=== PATIENT | female | born 1970 ===

== ENCOUNTER 2017-05-03 10:26 | Day surgery (SDC) | payer OTHER ==
--- NOTE | 2017-05-02 08:43 | PDGENHP ---
History and Physical - Chief Complaint Right Hip Pain - History of Present Illness 1. Right~Hip Pain, acute on chronic 2. ~~S/P Labral recon 3 years ago 3. Left hip pain, less symptomatic HISTORY OF PRESENT ILLNESS: Jonathanis a 46 y.o.~~active female~who I have had the pleasure to consult on today. ~I have enjoyed meeting her. She~lives in [place]. 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 ~She~is ; she~has four~children. ~Jonathanenjoys [place] outdoor activities. Chelsi's right~hip pain started almost 10~years ago, with no~recalled trauma or injury, and with no~previous complaints.~Jonathandoes not have~a known history of hip dysplasia. She saw Dr. Matta 3 years ago and was diagnosed with GLENN, he did a Right hip scope with labral reconstruction. She had significant improvement after surgery and got back to running and snowboarding, although she was never pain free. About 1 year after her surgery her pain started returning and has gotten slowly progressively worse for the past 2 years. Presentation today is of~anterior and lateral right~hip pain. ~The hip does~ wake her~at night and does~click and catch on her. Sitting can be uncomfortable~ for her. Jonathandoes not~report suffering from lower back pain episodes. Jonathanhas~participated in physical therapy and has~tried other conservative measures including dry needling, chiropractic treatments and massage therapy. She has had 3 SI injections on the Right side, most recently 2 months ago, they provide significant relief for roughly 2 weeks. She has had 1 hip injection 4 months ago which provided complete relief for several hours, but no long lasting help. She~has not~received sufficient symptomatic improvement. Jonathanhas~utilized medication for pain management, including NSAID~and ultram. Chelsi Pagehas used medication for 3-4 years. Jonathandenies issues with the left~hip. ~ Jonathanunderstands that she~has a hip and pelvis problem which should be researched and wishes to get a better understanding of her~hip status, followed by an establishment of a treatment strategy, hoping she~would be able to get back to her~well being active life. History: Past medical history: ~ Hypothyroidism Relevant familial history: None which is relevant Past surgical history: No. Surgery Anesthesia Year Outcome 1 Appendectomy General 1992 Good 2 Left foot surgery General 2007 Good 3 Right hip scope General 2014 Not satisfactory Jonathandenies problematic issues with general anesthesia in the past. I have reviewed, verified and agree with the past medical, surgical, family and social history. Current Medications:~has a current medication list which includes the following prescription(s): levothyroxine. ALLERGIES:~has No Known Allergies. Objective: Physical Examination: Jonathanis 5~feet 3~inches tall and weighs~125~Lbs. Jonathanis AAO x3; she~is well- nourished, in NAD. Skin is warm and dry. ~Breathing is non-labored. ~CV with RRR by pulse. Abdomen is soft, NTND. Currently, she~walks with a normal~gait. Trendelenburg sign is positive and proprioception~is reduced, right~side. She~presents~with mild~signs of joint laxity.~Beightons Score: 2 Lower spine examination is negative~for sciatic or femoral nerve irritation with negative~SLR &~femoral stretch tests. Range of motion of the spine is normal~for flexion, extension, and rotations, with no~associated pain. Strength, Sensation and pulses are normal - bilaterally Ankles and knees exams are normal~and no~mal-alignment is evident. She~has~no leg length discrepancy. Thigh circumference is symmetric~with no evidence for muscle atrophy~on both~ sides. Hip ROM (degrees): FL ER At 90~hip FL IR At 90~hip FL AB AD EX IR Neutral hip ER Neutral hip R 110 45 15 45 10 5 45 30 L 115 50 15 45 5 5 50 25 Specific hip and pelvis tests: Quadrant STACI Roll Add. Longus R +++ +++ Negative Negative L ++ ++ Negative Negative Glut. Med ITB Pos. Imp R ++ 5/5 strength Negative 5/5 strength Negative L Negative 5/5 strength Negative 5/5 strength Negative Squeeze test measured normal Bony Symphysis pubis is pain free~to touch while concentric activity of the rectus abdominis, does not~produce pain at its insertion. Ilio Psos specific tests are positive for pain during cycling for the right hip~ and no snap HF has good strength with minimal pain on the right hip. No~capsule tenderness Greater trochanteric burse is pain free~on both hips. Piriformis tests: FAIR is negative, with no~local signs of neuritis related to sciatic nerve. SIJs examination is normal~with normal~STACI in relation and local tenderness. Hamstrings tests are negative~functional contraction and negative~tendinopathy both hips. On a daily basis, the following percentages reflect Chelsi's overall total pain: Deep hip: 75% Glut: 25% Imaging: Radiology studies which I~have personally reviewed, analyzed and measured are below: XR: AP of the hip and pelvis: Performed in a good~technique Coccyx to pubic symphysis distance 1.5~cm. 0~degrees caudal/cephal [place]~Lines are preserved. Minimal~Pathological signs are seen in the Symphysis Pubis. Minimal~Pathological signs are seen at the Ischial~tuberosity. ~ Specific measurements show: NSA~ LCE Sourcil~Angle Sharp's angle Lat. Cam Lat. Pincer C.Over~sign Head~Coverage % ATDmm R N 30 5 41 - - - 72 N L N 35 1 36 - - - N N Pos. wall sign ISS NAD ~~Dysplasia Comments R Negative Negative 12~mm Negative L Negative Negative 10~mm Negative Sclerosis Sup. Lat. OA Cysts Joint Space-WBZ Joint Space-Medial R + + + (femoral) 4.1~mm 4.6~mm L Negative Negative Negative 4.7~mm 4.0~mm X Table lateral: Anterior cam lesion is seen~on the left hip. Alpha Angle: ~ Right 38~dergrees Left 51~degrees Impression and plan:~ Jonathanis a 46 y.o.~active female~suffering from symptomatic right~hip pain likely due to either scar tissue and adhesions and possibly~borderline instability causing significant disability to her~and altering~her~sport and life activities. Physical examination, imaging, and her~story correspond with the diagnosis mentioned above. Post surgical scar tissue and adhesions is a one of the commonest reasons for revision hip scope and is usually addressed well via revision hip scope and scar tissue removal. I explained that hip Instability (Dysplasia) is a condition wherein the hip joint has excessive play~and instability due to a variety of factors, including the depth and adequacy of the socket, the orientation of the femur bone, and ligament laxity around the hip joint. Dysplasia ranges in severity from borderline to medhat, with treatment options being specific to the specific nature of the problem. Left untreated, the instability in the hip joint can cause progressive tearing of the labrum and deterioration of the surface cartilage, ultimately resulting in progressive osteoarthritis of the hip. I reviewed conservative treatment options for dysplasia including activity modification to avoid positions of instability, physical therapy, non-steroidal anti-inflammatory medications, and various injections (corticosteroid and PRP) aimed at reducing inflammation in the hip joint or/and preventing dynamic instability and impingement. Although these measures may help to buy time, they are not a definitive solution to the problem given the underlying abnormality in the shape of the hip joint. Patients who have failed conservative management and continue to experience symptoms are candidates for definitive surgical treatment, which may consist of hip arthroscopy alone or in combination with more invasive bony realignment procedures of the hip socket and/or femur called periacetabular osteotomy (MARCUS) or derotational femoral osteotomy (DFO). Hip arthroscopy typically includes treating the labrum with either repair or reconstruction of the torn labrum; as well as addressing the underlying abnormalities by restoring the normal shape of the hip joint. ~If the cartilage is damaged a Microfracture surgical procedure may also be necessary to help stimulate the growth of fibrocartilage. If a patient requires a labral reconstruction or a Microfracture, the initial rehabilitation from the surgery may take longer, but the snf results are typically favorable. I have explained that because of her age and gender, the results of hip arthroscopy are less reproducible/predictable than with younger patients or male patients of the same age. I reviewed the technical aspects of periacetabular osteotomy (MARCUS) including risks, benefits, and expected course of recovery. Chelsi~understands that MARCUS is an inpatient procedure carried out through two medium sized incisions on the front and back of the hip joint. The hip socket is cut, realigned, and stabilized with 2 ~3 internal screws. Risks include infection, bleeding, injury to nearby nerves or vessels, stiffness, persistent pain, instability, failure of bony healing, implant related complications, and venous thromboembolic disease. Rarely, revision surgery may be required to address these problems. Risks, potential complications, side effects and recovery from surgical procedure were discussed in length. We explained how this surgery is an open procedure, and though patients tend to do well in the long-term, it involves significant pain in the first 2-4 weeks post-op and a rather lengthy rehab.~Overall recovery takes approximately 6 ~12~months depending on the extent of damage and degree of repair. Jonathanunderstands that she~will undergo hip arthroscopy 1 week prior to the MARCUS to address damage inside the hip joint. Jonathanunderstands that hip arthroscopy and MARCUS are two separate procedures that are best performed one week apart, with the arthroscopy commencing first to "tighten up" any pathology evident in the hip joint (labral repair, etc.) and the MARCUS open procedure occurring 7-10 days later to realign the acetabulum. Chelsi~will review the info presented. In order to obtain more detailed information regarding the alignment, orientation, and shape of the bony hip and pelvis I will order a CT scan to be performed. The results of the CT scan, including femoral torsion and acetabular version measured values and 3D images, will aid me in deciding on the best treatment strategy and surgical pre-planning. In order to better evaluate the soft tissues and cartilage of the hip joint, I will order an MRI scan. Jonathanis going to contact us after completing her~imaging studies. At this point we do NOT conclude that she suffers from hip instability. We need both MR and CT to be able to establish a formal diagnosis and suggest a treatment strategy. Jonathanis happy with this plan. I have also supplied her~with handouts, outlining the expected surgical treatment and rehab involved. I wish~Jonathanall the best, ~~ Art Messina MD History Information - Allergies/Home Medication List Allergies/Adverse Reactions: No Known Allergies Allergy (Verified 03/29/17 12:43) Home Medications: Fluoxetine HCl [Prozac 40 mg] 40 mg PO DAILY 03/29/17 [Last Taken Unknown] Levothyroxine [Synthroid 88 mcg (*)] 88 mcg PO DAILY06 03/29/17 [Last Taken Unknown] I have personally reviewed and updated: medical history - Social History Smoking Status: Never smoked Review of Systems Review of Systems: Physical Exam Physical Exam:
[2017-05-03] MEDS ORDERED: PREGABALIN 150 MG CAP PO ONE (10:40)
[2017-05-03] MEDS ORDERED: LR 1,000 ML IV ONE (10:40)
[2017-05-03] MEDS ORDERED: ceFAZolin 2 GM/SWFI 2 GM/20 ML SYR IVP ONE (10:40)
[2017-05-03] MEDS ORDERED: ACETAMINOPHEN 500 MG TAB PO ONE (10:40)
[2017-05-03] MEDS ORDERED: BUPIVACAINE 0.25% 30 ML SDV ONE (11:33)
[2017-05-03] MEDS ORDERED: EPINEPHrine 30 MG/30 ML MDV ONE (11:33)
[2017-05-03] MEDS ORDERED: MIDAZOLAM 2 MG/2 ML VIAL IVP ONE (13:36)
--- NOTE | 2017-05-03 13:38 | PDANEPAE ---
ANE History of Present Illness right hip pain ANE Past Medical History - Cardiovascular History Hx Hypertension: No Hx Arrhythmias: No Hx Chest Pain: No Hx Coronary Artery / Peripheral Vascular Disease: No Hx CHF / Valvular Disease: No Hx Palpitations: No - Pulmonary History Hx COPD: No Hx Asthma/Reactive Airway Disease: No Hx Recent Upper Respiratory Infection: No Hx Oxygen in Use at Home: No Hx Sleep Apnea: No Sleep Apnea Screening Result - Last Documented: Negative Pulmonary History Comment: exercise induced asthma - Neurologic History Hx Cerebrovascular Accident: No Hx Seizures: No Hx Dementia: No - Endocrine History Hx Diabetes: No Obesity: no - Renal History Hx Renal Disorders: No - Liver History Hx Hepatic Disorders: No - Neurological & Psychiatric Hx Hx Neurological and Psychiatric Disorders: Yes Neurological / Psychiatric History Comment: depression - Cancer History Hx Cancer: No - Congenital Disorder History Hx Congenital Disorders: No - GI History Hx Gastrointestinal Disorders: No - Other Health History Other Health History: none - Chronic Pain History Chronic Pain: No - Surgical History Prior Surgeries: labral reconstruction right hip. ANE Review of Systems Review of Systems: - Exercise capacity METS (RN): 4 METS ANE Patient History - Allergies Allergies/Adverse Reactions: No Known Allergies Allergy (Verified 03/29/17 12:43) - Home Medications Home medications: home medication list seen and reviewed Home Medications: Fluoxetine HCl [Prozac 40 mg] 40 mg PO DAILY 03/29/17 [Last Taken 05/03/17] Levothyroxine [Synthroid 88 mcg (*)] 88 mcg PO DAILY06 03/29/17 [Last Taken 04/09] - NPO status NPO Since - Liquids (Date): 05/03/17 NPO Since - Liquids (Time): 08:00 NPO Since - Solids (Date): 05/02/17 NPO Since - Solids (Time): 19:00 - Anes Hx Anes Hx: no prior problems - Smoking Hx Smoking Status: Never smoked - Alcohol Use Alcohol Use: None - Family Anes Hx Family Hx Anesthesia Complications: none ANE Labs/Vital Signs - Vital Signs Blood Pressure: 138/86 Heart Rate: 63 Respiratory Rate: 18 O2 Sat (%): 97 Height: 160.02 cm Weight: 56.699 kg ANE Physical Exam - Airway Neck exam: FROM Mallampati Score: Class 1 Mouth exam: normal dental/mouth exam - Pulmonary Pulmonary: no respiratory distress - Cardiovascular Cardiovascular: regular rate and rhythym - ASA Status ASA Status: II ANE Anesthesia Plan Anesthesia Plan: general endotracheal anesthesia
[2017-05-03] MEDS ORDERED: PROPOFOL 200 MG/20 ML VIAL ONE (13:44)
[2017-05-03] MEDS ORDERED: fentaNYL 100 MCG/2 ML INJ ONE ×3 (13:44→16:30)
[2017-05-03] MEDS ORDERED: ROCURONIUM 100 MG/10 ML VIAL ONE (13:45)
[2017-05-03] MEDS ORDERED: LIDOCAINE 2% 5 ML SDV ONE (13:46)
[2017-05-03] MEDS ORDERED: DEXAMETHASONE 4 MG/ML VIAL ONE (13:51)
[2017-05-03] MEDS ORDERED: SUGAMMADEX SODIUM 200 MG/2 ML VIAL IVP ONE (13:51)
[2017-05-03] MEDS ORDERED: ONDANSETRON 4 MG/2 ML VIAL ONE (13:51)
[2017-05-03] MEDS ORDERED: PROMETHAZINE HCL 25 MG/ML INJ IVP PRN (16:27)
[2017-05-03] MEDS ORDERED: NALOXONE HCL 0.4 MG/ML INJ IVP PRN (16:27)
[2017-05-03] MEDS ORDERED: OXYCODONE/APAP 5/325 TAB PO PRN (16:27)
[2017-05-03] MEDS ORDERED: LR 500 ML IV PRN (16:27)
[2017-05-03] MEDS ORDERED: ALBUTEROL 3 ML DEYVIAL IH PRN (16:27)
[2017-05-03] MEDS ORDERED: ONDANSETRON 4 MG/2 ML VIAL IVP PRN (16:27)
[2017-05-03] MEDS ORDERED: ACETAMINOPHEN 500 MG TAB PO PRN (16:27)
--- NOTE | 2017-05-03 16:27 | POSTANESTH ---
Post Anesthetic Evaluation Cardiovascular Status: Normal, Stable Respiratory Status: Normal, Stable Level of Consciousness/Mental Status: Can Participate in Eval Pain Control: Adequate, Prn Tx Ordered Nausea/Vomiting Control: Adequate, Prn Tx Ordered Complications Possibly Related to Anesthesia: None Noted
[2017-05-03] MEDS ORDERED: HYDROmorphONE/DILAUDID 1 MG/ML INJ ONE ×2 (16:30→17:07)
[2017-05-03] MEDS: HYDROmorphONE/DILAUDID 1 MG/ML INJ IVP PRN ×3 (16:32→17:08)
[2017-05-03] MEDS: fentaNYL 100 MCG/2 ML INJ IVP PRN ×3 (16:37→16:54)
[2017-05-03] MEDS ORDERED: OXYCODONE/APAP 5/325 TAB ONE (16:45)
[2017-05-03 17:17] VITALS: RESP 14; TEMP 97.5; O2SAT 94
[2017-05-03 17:32] VITALS: BP 122/81; PULSE 86
== END 2017-05-03 18:20 | disposition home or self-care (01) ==
LOC: FSGY 10:26
PROVIDERS: ATTEND Orthopaedic Surgery Sports Medicine
DX: S73.191A Other sprain of right hip, initial encounter (principal); Q65.89 Other specified congenital deformities of hip
CPT/HCPCS: C1713; J0171; J0690; J1100; J1170; J2250; J2405; J2704; J3010

== ENCOUNTER 2017-05-06 05:44 | Inpatient (IN) | payer OTHER ==
[2017-05-06] MEDS ORDERED: LIDOCAINE 1% 2 ML INJ ID PRN (06:06)
[2017-05-06] MEDS ORDERED: LR 1,000 ML IV ONE (06:06)
[2017-05-06] MEDS ORDERED: ACETAMINOPHEN 500 MG TAB PO ONE (06:52)
[2017-05-06] MEDS ORDERED: SCOPOLAMINE HYDROBROMIDE 1 MG/3 DAYS PATCH TD ONE (06:52)
[2017-05-06] MEDS ORDERED: TRANEXAMIC ACID 1,000 MG in NS 100 ML IV ONE (06:52)
[2017-05-06] MEDS ORDERED: ceFAZolin 2 GM/SWFI 2 GM/20 ML SYR IVP ONE (06:52)
[2017-05-06] MEDS ORDERED: PREGABALIN 150 MG CAP PO ONE ×2 (06:52→07:00)
--- NOTE | 2017-05-06 06:53 | PDHPUP ---
History & Physical Update H&P update statement: This history and physical update is based on an assessment of the patient which was completed after admission or registration (within 24 hours), but prior to the surgery/procedure. H&P update: H&P reviewed & patient examined, no change in patient's condition since H&P completed
[2017-05-06] MEDS ORDERED: CITRATE DEXTROSE SOLN 500 ML BAG ONE (07:10)
--- NOTE | 2017-05-06 07:12 | PDANEPAE ---
ANE Past Medical History - Cardiovascular History Hx Hypertension: No Hx Arrhythmias: No Hx Chest Pain: No Hx Coronary Artery / Peripheral Vascular Disease: No Hx CHF / Valvular Disease: No Hx Palpitations: No - Pulmonary History Hx COPD: No Hx Asthma/Reactive Airway Disease: Yes Hx Recent Upper Respiratory Infection: No Hx Oxygen in Use at Home: No Hx Sleep Apnea: No Sleep Apnea Screening Result - Last Documented: Negative Pulmonary History Comment: exercise induced asthma - Neurologic History Hx Cerebrovascular Accident: No Hx Seizures: No Hx Dementia: No - Endocrine History Hx Diabetes: No Hypothyroid: Yes - Renal History Hx Renal Disorders: No - Liver History Hx Hepatic Disorders: No - Neurological & Psychiatric Hx Hx Neurological and Psychiatric Disorders: Yes Neurological / Psychiatric History Comment: depression - Cancer History Hx Cancer: No - Congenital Disorder History Hx Congenital Disorders: No - GI History Hx Gastrointestinal Disorders: No - Other Health History Other Health History: none - Chronic Pain History Chronic Pain: No - Surgical History Prior Surgeries: labral reconstruction right hip. ANE Review of Systems Review of Systems: - Exercise capacity METS (RN): 5 METS ANE Patient History - Allergies Allergies/Adverse Reactions: No Known Allergies Allergy (Verified 03/29/17 12:43) - Home Medications Home Medications: Fluoxetine HCl [Prozac 40 mg] 40 mg PO DAILY 03/29/17 [Last Taken 05/06/17] Levothyroxine [Synthroid 88 mcg (*)] 88 mcg PO DAILY06 03/29/17 [Last Taken ] - NPO status NPO Since - Liquids (Date): 05/05/17 NPO Since - Liquids (Time): 20:00 NPO Since - Solids (Date): 05/05/17 NPO Since - Solids (Time): 18:30 - Smoking Hx Smoking Status: Never smoked - Family Anes Hx Family Hx Anesthesia Complications: none ANE Labs/Vital Signs - Vital Signs Blood Pressure: 135/85 Heart Rate: 63 Respiratory Rate: 16 O2 Sat (%): 96 Height: 160.02 cm Weight: 56.699 kg ANE Physical Exam - Airway Mallampati Score: Class 2 - ASA Status ASA Status: II ANE Anesthesia Plan Anesthesia Plan: GA w LMA, epidural
[2017-05-06 07:14] LABS: HEMATOCRIT 39.3 % (38.0-47.0); HEMOGLOBIN 13.7 g/dL (12.6-16.3); MEAN CELL HEMOGLOBIN 31.4 pg (27.9-34.1); MEAN CELL HEMOGLOBIN CONCENTR. 34.9 g/dL (32.4-36.7); MEAN CELL VOLUME 90.1 fL (81.5-99.8); RED BLOOD CELL COUNT 4.36 10^6/uL (4.18-5.33); RED CELL DISTRIBUTION WIDTH 12.8 % (11.5-15.2)
[2017-05-06] MEDS ORDERED: MIDAZOLAM 2 MG/2 ML VIAL ONE (07:15)
[2017-05-06] MEDS ORDERED: fentaNYL 100 MCG/2 ML INJ ONE ×2 (07:18→09:32)
[2017-05-06] MEDS ORDERED: PROPOFOL 200 MG/20 ML VIAL ONE (07:18)
[2017-05-06] MEDS ORDERED: ONDANSETRON 4 MG/2 ML VIAL ONE (07:19)
[2017-05-06] MEDS ORDERED: METOCLOPRAMIDE 10 MG/2 ML VIAL ONE (07:19)
[2017-05-06] MEDS ORDERED: ceFAZolin 1 GM VIAL ONE ×2 (10:21)
[2017-05-06] MEDS ORDERED: PROMETHAZINE HCL 25 MG/ML INJ IVP PRN (12:28)
[2017-05-06] MEDS ORDERED: LR 500 ML IV PRN (12:28)
[2017-05-06] MEDS ORDERED: ONDANSETRON 4 MG/2 ML VIAL IVP PRN ×2 (12:28→12:45)
[2017-05-06] MEDS ORDERED: NALOXONE HCL 0.4 MG/ML INJ IVP PRN ×2 (12:28→12:52)
[2017-05-06] MEDS ORDERED: ONDANSETRON DISINTEGRATING 4 MG TAB PO PRN (12:45)
[2017-05-06] MEDS ORDERED: POLYETHYLENE GLYCOL 3350 17 GM PKT PO PRN (12:45)
[2017-05-06] MEDS ORDERED: LACTULOSE 20 GM/30 ML UDCUP PO PRN (12:45)
[2017-05-06] MEDS ORDERED: BISACODYL 10 MG SUPP PR PRN (12:45)
[2017-05-06] MEDS ORDERED: NARCOTIC DRIP BAG-TOTAL ALL TYPES EP PRN (12:52)
[2017-05-06] MEDS: fentaNYL 2MCG/ML/BUP 0.1% RTU 100 ML EP SCH ×2 (13:03→20:34)
[2017-05-06] MEDS: SENNOSIDES/DOCUSATE SODIUM TAB PO SCH (20:34)
--- NOTE | 2017-05-06 23:37 | SUROPNOTE ---
[facility] Operative Report - Surgery Surgery was performed at [facility] 05/06/17 Diagnosis: Right 1. Hip Acetabular Dysplasia ~ Operation: Right~Francisca Acetabular Osteotomy (MARCUS) Surgeon: Ryan Lambert MD [employer] Selling Floor Leader:~~Panfilo ROWLAND Anesthetic: General + epidural Procedure: General anesthetic. Antibiotics given. Cell saver in use. Fluoroscopy. Phase 1: Position lateral, diagonal skin incision between ischial tuberosity and greater trochanter as for posterior hip approach. Blunt split of glut max fibers. Identification of fat pad overlying sciatic nerve. Exposure of sciatic nerve under fat pad, gently retracting it away-medially to ischial tuberosity. Exposure of subcotoloid fossa proximal to short rotators. Using osteotomes and under fluoroscopy, osteotomy of subcotoloid fossa to sciatic notch proximal to ischial spine. Closure of lateral cut. Patient is turned supine. Phase 2: Skin incision just distal to ASIS. Using diathermy the iliac spine was exposed and inguinal ligament + Sartorious were retracted medially, taking the LFCN with them, protecting it. Inner ilium was dissected from iliacus muscle bluntly , with a cob and swab. Dissection continued towards lateral superior ramus pubis. Using fluoroscopy an osteotomy of lateral superior ramus, just medial to tear drop, was performed with curved fish mouth osteotome. Phase 3: Osteotomy lines of the ilium were marked with diathermy as pre planned according to XR/CT and expected correction of acatabulum. 2 Shanz screws were drilled into central acetabular fragment, corresponding with planned correction angles, in order to mobilize central acetabular fragment after osteotomy is complete. ~Iliac osteotomy was performed with reciprocating saw and the main acetabular fragment was moved to realign weight bearing position. After confirmation of correction using fluoroscopy in AP and false profile planes, the fragment was fixed with 2 - 5.5mm ~full threaded~screws~and 1 - 4.5~~full threaded~screw. Inguinal ligament and Sartorious were attached back to ASIS through drill holes. Incision was closed according to soft tissue layers. Skin was closed with subdermal Monocryl. Final fluoro shots were obtained to confirm position/correction. After surgery Chelsi~moved both lower limbs and had no NV motor compromise. Evaluation under anesthesia: IR at 90 degrees hip flexion prior to MARCUS was 10-15~degrees and after MARCUS was 10 ~degrees. Bleedin~cc into cell-saver, of blood products were returned to patient. Post op instructions: 1. Non~weight bearing crutches for 6 weeks 2. Epidural analgesia for 24-48 hours 3. Continuous SCD 4. Aspirin 81 mg X1 day once Epidural is discontinued 5. Avoid hip flexion past 90 and hip External rotation. 6. PT according to my recommendations at follow up visit Kind regards, Dr. Ryan Lambert
[2017-05-07] MEDS: fentaNYL 2MCG/ML/BUP 0.1% RTU 100 ML EP SCH ×3 (04:45→21:22)
[2017-05-07] MEDS: ACETAMINOPHEN 325 MG TAB PO PRN ×2 (04:45→18:32)
[2017-05-07] MEDS: LEVOTHYROXINE 88 MCG TAB PO SCH (04:46)
[2017-05-07 05:38] LABS: HEMATOCRIT 27.4 % (38.0-47.0); HEMOGLOBIN 9.1 g/dL (12.6-16.3); MEAN CELL HEMOGLOBIN 30.6 pg (27.9-34.1); MEAN CELL HEMOGLOBIN CONCENTR. 33.2 g/dL (32.4-36.7); MEAN CELL VOLUME 92.3 fL (81.5-99.8); RED BLOOD CELL COUNT 2.97 10^6/uL (4.18-5.33); RED CELL DISTRIBUTION WIDTH 12.8 % (11.5-15.2)
[2017-05-07 05:45] LABS: ANION GAP 8 mEq/L (8-16); CALCIUM 7.5 mg/dL (8.5-10.4); CARBON DIOXIDE 27 mEq/l (22-31); CHLORIDE 102 mEq/L (97-110); CREATININE 0.7 mg/dL (0.6-1.0); GLOMERULAR FILTRATION RATE > 60; GLUCOSE 92 mg/dL (70-100); POTASSIUM 3.8 mEq/L (3.5-5.2); SODIUM 137 mEq/L (134-144)
[2017-05-07] MEDS: SENNOSIDES/DOCUSATE SODIUM TAB PO SCH ×2 (08:45→21:21)
[2017-05-07] MEDS ORDERED: FLUoxetine 20 MG CAP PO SCH (09:00)
[2017-05-07] MEDS ORDERED: NON-FORMULARY NEW DRUG (Fluoxetine Hcl [Prozac 40 Mg] 40 MG) PO SCH (09:00)
[2017-05-07] MEDS: FLUoxetine 20 MG CAP PO SCH (10:57)
[2017-05-07] MEDS: REGARDING ANTICOAG MISC SCH (10:58)
[2017-05-07] MEDS: DC NARCS MISC SCH (10:58)
--- NOTE | 2017-05-07 15:15 | ASMTCMCOM ---
CM Note CM Note Notes: PT/OT clear pt for home. Anticipate pt will d/c when medically stable. CM available for changes/needs. Date Signed: 05/07/2017 03:14 PM Electronically Signed By:MARK Landin
--- NOTE | 2017-05-07 21:28 | SOAPPROG ---
SOAP Progress Note Assessment/Plan: Assessment: 1 day post op Right Periacetabular Osteotomy Plan: Incentive Spriometry; fevers likely atelectasis Wean down and off epidural tomorrow. transition to oral analgesics Up with PT/OT Pelvis xray on 05/07/17 21:25 Subjective: Chelsi was doing well when I saw her at 1900. Her pain has been well managed with epidural. She's been up, out of bed with nurses. She has been febrile, up to 101.7F. She denies any cp sob or nausea. Objective: Vital Signs Temp Pulse Resp BP Pulse Ox 38.0 C 112 H 16 101/60 99 05/07/17 18:00 05/07/17 18:00 05/07/17 18:00 05/07/17 18:00 05/07/17 18:00 Laboratory Results 05/07/17 04:48 05/07/17 04:48 05/06/17 05/07/17 05/08/17 05:59 05:59 05:59 Intake Total 1600 Output Total 1625 2600 Balance -25 -2600 well appearing in NAD Right hip: dressings clean dry intact scattered ecchymosis and edema surrounding incisions. NVI distally Full ROM of foot and ankle - Pending Discharge Pending Discharge Within 48 Hours: Yes Pending Discharge Date: 05/09/17 Pending Discharge Time: 11:00 ICD10 Worksheet Patient Problems: Problems Problem Status Onset Post-operative pain Acute - ICD10 Problem Qualifiers (1) Post-operative pain
[2017-05-07] MEDS: DIAZEPAM 2 MG TAB PO PRN (22:12)
[2017-05-08] MEDS: fentaNYL 2MCG/ML/BUP 0.1% RTU 100 ML EP SCH (06:04)
[2017-05-08] MEDS: ACETAMINOPHEN 325 MG TAB PO PRN ×2 (06:05→21:08)
[2017-05-08] MEDS: LEVOTHYROXINE 88 MCG TAB PO SCH (06:05)
--- NOTE | 2017-05-08 08:11 | SOAPPROG ---
SOAP Progress Note Assessment/Plan: Assessment: POD#2 s/p R PeriAcetabular Osteotomy and doing well overall Plan: - epidural to be d/c'ed today with transition to oral pain meds - regular diet with bowel regimen - encourage IS - PT/OT - green out once epidural d/c'ed - XR tomorrow - anticipate discharge to home on Saturday05/08/17 08:07 Subjective: Pain well controlled. Slept well last night. No nausea or vomiting. No CP or SOB. No fevers or chills. No numbness or tingling. Using IS. Got OOB with PT yesterday. Objective: Vital Signs Temp Pulse Resp BP Pulse Ox 37.7 C 84 14 92/53 L 94 05/08/17 07:46 05/08/17 07:46 05/08/17 07:46 05/08/17 07:46 05/08/17 07:46 Laboratory Results 05/07/17 04:48 05/07/17 04:48 05/07/17 05/08/17 05/09/17 05:59 05:59 05:59 Intake Total 1600 625 Output Total 1625 4150 Balance -25 -4150 625 GEN - NAD, AO ABD - soft, NT, ND BLE - incisions dressed - clean and dry - 5/5 adduction thighs, dorsi/plantar flexion of ankles and toes - SILT L5 - S1, except diminished in R LFCN - BCR, WWP, palpable dp and pt pulses ICD10 Worksheet Patient Problems: Problems Problem Status Onset Post-operative pain Acute
[2017-05-08] MEDS: SENNOSIDES/DOCUSATE SODIUM TAB PO SCH ×2 (09:43→19:37)
[2017-05-08] MEDS: FLUoxetine 20 MG CAP PO SCH (09:43)
[2017-05-08] MEDS: REGARDING ANTICOAG MISC SCH (09:46)
[2017-05-08] MEDS: DC NARCS MISC SCH (09:46)
--- NOTE | 2017-05-08 12:42 | SOAPPROG ---
SOAP Progress Note Assessment/Plan: Assessment: POD2 s/p MARCUS. Pain has been well controlled with epidural with minimal side effects (mild itching). She has been ambulatory without difficulty. Plan:Wean epidural and convert to po pain meds then discontinue epidural. 05/08/17 12:40 Objective: Vital Signs Temp Pulse Resp BP Pulse Ox 37.6 C 81 16 107/64 94 05/08/17 12:08 05/08/17 12:08 05/08/17 12:08 05/08/17 12:08 05/08/17 12:08 Laboratory Results 05/07/17 04:48 05/07/17 04:48 05/07/17 05/08/17 05/09/17 05:59 05:59 05:59 Intake Total 1600 625 Output Total 2813 4154 800 Balance -25 -4150 -175 ICD10 Worksheet Patient Problems: Problems Problem Status Onset Post-operative pain Acute
[2017-05-08] MEDS ORDERED: HYDROmorphone HCL/NS/PF 0.4 MG/2 ML SYR IVP PRN (13:47)
[2017-05-08] MEDS: oxyCODONE IR 5 MG TAB PO PRN ×4 (13:52→22:48)
[2017-05-08] MEDS: ASPIRIN EC 81 MG TAB PO SCH (13:52)
[2017-05-08] MEDS: diphenhydrAMINE 25 MG CAP PO PRN (17:50)
[2017-05-08] MEDS: DIAZEPAM 2 MG TAB PO PRN (19:33)
[2017-05-09] MEDS: DIAZEPAM 2 MG TAB PO PRN ×2 (02:04→21:15)
[2017-05-09] MEDS: oxyCODONE IR 5 MG TAB PO PRN ×5 (02:04→21:16)
[2017-05-09] MEDS: LEVOTHYROXINE 88 MCG TAB PO SCH (06:09)
[2017-05-09] MEDS: SENNOSIDES/DOCUSATE SODIUM TAB PO SCH ×2 (09:39→20:58)
[2017-05-09] MEDS: FLUoxetine 20 MG CAP PO SCH (09:40)
[2017-05-09] MEDS: ASPIRIN EC 81 MG TAB PO SCH (09:40)
[2017-05-09] MEDS: MAGNESIUM HYDROXIDE 30 ML UDCUP PO PRN ×2 (09:47→21:06)
[2017-05-09] MEDS: DC NARCS MISC SCH (09:48)
[2017-05-09] MEDS: REGARDING ANTICOAG MISC SCH (09:49)
[2017-05-09] MEDS: diphenhydrAMINE 25 MG CAP PO PRN ×2 (10:41→17:13)
[2017-05-09] MEDS: ACETAMINOPHEN 325 MG TAB PO PRN (10:41)
[2017-05-09] MEDS ORDERED: NS 1,000 ML IV SCH (23:00)
[2017-05-09] MEDS: HYDROmorphone HCL/NS/PF 0.4 MG/2 ML SYR IVP PRN (23:10)
[2017-05-10] MEDS: LEVOTHYROXINE 88 MCG TAB PO SCH (05:25)
--- NOTE | 2017-05-10 06:11 | PDANEPAE ---
ANE History of Present Illness 46 yo female s/p R MARCUS on 05/06 now with hardware misplacement for revision. ANE Past Medical History - Cardiovascular History Hx Hypertension: No Hx Arrhythmias: No Hx Chest Pain: No Hx Coronary Artery / Peripheral Vascular Disease: No Hx CHF / Valvular Disease: No Hx Palpitations: No - Pulmonary History Hx COPD: No Hx Asthma/Reactive Airway Disease: Yes Hx Recent Upper Respiratory Infection: No Hx Oxygen in Use at Home: No Hx Sleep Apnea: No Sleep Apnea Screening Result - Last Documented: Negative Pulmonary History Comment: exercise induced asthma - Neurologic History Hx Cerebrovascular Accident: No Hx Seizures: No Hx Dementia: No - Endocrine History Hx Diabetes: No Hypothyroid: Yes - Renal History Hx Renal Disorders: No - Liver History Hx Hepatic Disorders: No - Neurological & Psychiatric Hx Hx Neurological and Psychiatric Disorders: Yes Neurological / Psychiatric History Comment: depression - Cancer History Hx Cancer: No - Congenital Disorder History Hx Congenital Disorders: No - GI History Hx Gastrointestinal Disorders: No - Other Health History Other Health History: none - Chronic Pain History Chronic Pain: No - Surgical History Prior Surgeries: labral reconstruction right hip, L MARCUS on 05/06/17. ANE Review of Systems Review of systems is: negative Review of Systems: - Exercise capacity METS (RN): 5 METS - Systems Constitutional: Reports: fever (after surgery) Cardiac: Reports: no symptoms Respiratory: Reports: no symptoms ANE Patient History - Allergies Allergies/Adverse Reactions: No Known Allergies Allergy (Verified 03/29/17 12:43) - Home Medications Home Medications: Fluoxetine HCl [Prozac 40 mg] 60 mg PO DAILY 03/29/17 [Last Taken 05/06/17] Levothyroxine [Synthroid 88 mcg (*)] 88 mcg PO DAILY06 03/29/17 [Last Taken ] - NPO status NPO Since - Liquids (Date): 05/09/17 NPO Since - Liquids (Time): 23:00 NPO Since - Solids (Date): 05/09/17 NPO Since - Solids (Time): 23:00 - Anes Hx Anes Hx: no prior problems - Smoking Hx Smoking Status: Never smoked Marijuana use: No - Alcohol Use Alcohol Use: Occasionally - Family Anes Hx Family Anes Hx: neg - N/A Family Hx Anesthesia Complications: none ANE Labs/Vital Signs - Labs Result Diagrams: 05/07/17 04:48 05/07/17 04:48 - Labs - CBC HGB: post-op anemia, rechecking CBC today - Vital Signs Blood Pressure: 124/74 Heart Rate: 64 Respiratory Rate: 16 O2 Sat (%): 94 Height: 160.02 cm Weight: 56.69 kg ANE Physical Exam - Airway Neck exam: FROM Mallampati Score: Class 2 Mouth exam: normal dental/mouth exam (braces - pt requests something be placed between braces and inner lip to protect her mouth.) - Pulmonary Pulmonary: clear to auscultation - Cardiovascular Cardiovascular: regular rate and rhythym - ASA Status ASA Status: II ANE Anesthesia Plan Anesthesia Plan: general endotracheal anesthesia
[2017-05-10] MEDS ORDERED: PREGABALIN 150 MG CAP PO ONE (06:33)
[2017-05-10] MEDS ORDERED: ACETAMINOPHEN 500 MG TAB PO ONE (06:33)
[2017-05-10] MEDS ORDERED: SCOPOLAMINE HYDROBROMIDE 1 MG/3 DAYS PATCH TD ONE (06:33)
[2017-05-10] MEDS ORDERED: ceFAZolin 2 GM/SWFI 2 GM/20 ML SYR IVP ONE (06:33)
--- NOTE | 2017-05-10 06:35 | PDHPUP ---
History & Physical Update H&P update statement: This history and physical update is based on an assessment of the patient which was completed after admission or registration (within 24 hours), but prior to the surgery/procedure.
[2017-05-10] MEDS ORDERED: CITRATE DEXTROSE SOLN 500 ML BAG ONE (06:42)
[2017-05-10] MEDS ORDERED: PREGABALIN 50 MG CAP ONE (06:47)
[2017-05-10] MEDS ORDERED: MIDAZOLAM 2 MG/2 ML VIAL IVP ONE (07:03)
[2017-05-10 07:08] LABS: HEMATOCRIT 22.4 % (38.0-47.0); HEMOGLOBIN 7.8 g/dL (12.6-16.3); MEAN CELL HEMOGLOBIN 31.7 pg (27.9-34.1); MEAN CELL HEMOGLOBIN CONCENTR. 34.8 g/dL (32.4-36.7); MEAN CELL VOLUME 91.1 fL (81.5-99.8); RED BLOOD CELL COUNT 2.46 10^6/uL (4.18-5.33); RED CELL DISTRIBUTION WIDTH 12.6 % (11.5-15.2)
[2017-05-10] MEDS ORDERED: HYDROmorphONE/DILAUDID 2 MG/ML INJ ONE (07:09)
[2017-05-10] MEDS ORDERED: PROPOFOL/EMULSION 500 MG/50 ML BOTTLE IV ONE ×2 (07:09→09:04)
[2017-05-10] MEDS ORDERED: ROCURONIUM 100 MG/10 ML VIAL ONE (07:10)
[2017-05-10] MEDS ORDERED: DEXAMETHASONE 4 MG/ML VIAL ONE ×2 (07:10)
[2017-05-10] MEDS ORDERED: LIDOCAINE 2% 5 ML SDV ONE (07:10)
[2017-05-10] MEDS ORDERED: MIDAZOLAM 2 MG/2 ML VIAL ONE (07:12)
[2017-05-10] MEDS ORDERED: BUPIVACAINE 0.25% 30 ML SDV ONE (07:27)
[2017-05-10] MEDS ORDERED: DEXMEDETOMIDINE IN 0.9 % NACL 100 ML IV SCH (07:30)
[2017-05-10] MEDS ORDERED: DEXMEDETOMIDINE HCL 400 MCG in NS 100 ML IV SCH (07:30)
[2017-05-10] MEDS ORDERED: PHENYLEPHRINE HCL 100 MCG/ML SYR ONE ×2 (07:54→10:24)
[2017-05-10] MEDS ORDERED: ONDANSETRON 4 MG/2 ML VIAL ONE (10:01)
[2017-05-10] MEDS ORDERED: ALBUTEROL 3 ML DEYVIAL IH PRN (10:12)
[2017-05-10] MEDS ORDERED: NALOXONE HCL 0.4 MG/ML INJ IVP PRN (10:12)
[2017-05-10] MEDS ORDERED: PROMETHAZINE HCL 25 MG/ML INJ IVP PRN (10:12)
[2017-05-10] MEDS ORDERED: HYDROmorphONE/DILAUDID 1 MG/ML INJ IVP PRN ×2 (10:12→11:18)
[2017-05-10 10:23] LABS: HEMOGLOBIN 8.6 g/dL (12.6-16.3); MEAN CELL HEMOGLOBIN 32.1 pg (27.9-34.1); MEAN CELL HEMOGLOBIN CONCENTR. 35.8 g/dL (32.4-36.7); MEAN CELL VOLUME 89.6 fL (81.5-99.8); RED BLOOD CELL COUNT 2.68 10^6/uL (4.18-5.33); RED CELL DISTRIBUTION WIDTH 12.6 % (11.5-15.2)
[2017-05-10] MEDS ORDERED: GLYCOPYRROLATE 0.2 MG/1 ML VIAL ONE (10:31)
[2017-05-10] MEDS ORDERED: SUGAMMADEX SODIUM 200 MG/2 ML VIAL IVP ONE (10:35)
--- NOTE | 2017-05-10 11:22 | POSTANESTH ---
Post Anesthetic Evaluation Cardiovascular Status: Normal, Stable Respiratory Status: Requires Airway Assist (Pt requiring OAW to maintain patent airway. Still very somnolent.) Level of Consciousness/Mental Status: Unconscious Pain Control: Adequate, Prn Tx Ordered Nausea/Vomiting Control: Adequate, Prn Tx Ordered Complications Possibly Related to Anesthesia: None Noted
[2017-05-10] MEDS ORDERED: HYDROmorphONE/DILAUDID 2 MG TAB PO PRN (12:02)
[2017-05-10] MEDS ORDERED: HYDROmorphone HCL/NS/PF 0.4 MG/2 ML SYR IVP PRN (12:05)
[2017-05-10] MEDS: HYDROmorphONE/DILAUDID 4 MG TAB PO SCH ×3 (14:10→21:57)
--- NOTE | 2017-05-10 14:20 | SUROPNOTE ---
HAILEY Operative Report - Surgery surgery was performed at [facility] 05/10/17 Diagnosis: Right~loosening~of hardware and loss of position/alignemnt 3 days post right MARCUS ~ Operation: Revision Right hardware placement for Francisca Acetabular Osteotomy (MARCUS) Surgeon: Ryan Lambert MD Physiotherapy Aide:~~Panfilo ROWLAND Anesthetic: General + epidural Procedure: General anesthetic. Antibiotics given. Cell saver in use. Fluoroscopy. Skin incision just distal to ASIS trough previous incision. Inguinal ligament + Sartorious were retracted medially, taking the LFCN with them, protecting it. Inner ilium was dissected from iliacus muscle bluntly, with a cob and swab. Dissection continued towards lateral superior ramus pubis. C-arum confirmed loss of correction since last surgery. ~2 Shanz screws were drilled into central acetabular fragment into previous holes, in order to mobilize central acetabular fragment after osteotomy is complete. ~After confirmation of RE-correction using fluoroscopy in AP and false profile planes and then with a and flat plate, the fragment was fixed with 2 - 6.5mm ~ full threaded~screws~and 1 - 5.5mm ~full threaded~screw, position was confirmed again with flat plate. I then added a 4 hole 3.5mm locking plate with 1 locking and one non-locking screw on each side of the osteotomy. ROM was confirmed. Inguinal ligament and Sartorious were attached back to ASIS through drill holes. Incision was closed according to soft tissue layers. Skin was closed with subdermal Monocryl. flat plate~shots were obtained to confirm final position/correction. After surgery Chelsi~moved both lower limbs and had no NV motor compromise. Bleedin~cc into cell-saver, 135~of blood products were returned to patient. HB prior to surgery was 7.7. In addition to 135ml cell-saver patient got 2 units of blood, was 8.4 after first one. Post op instructions: 1. Non~weight bearing crutches for 6 weeks 2. Epidural analgesia for 24-48 hours 3. Continuous SCD 4. Aspirin 81 mg X1 day once Epidural is discontinued 5. Avoid hip flexion past 90 and hip External rotation. 6. PT according to my recommendations at follow up visit Kind regards, Dr. Ryan Lambert .
--- NOTE | 2017-05-10 14:24 | SOAPPROG ---
RYAN Progress Note Assessment/Plan: Assessment: Plan: 05/10/17 14:20 I saw Chelsi on 05/09 which was POD 3 after she obtained post op XR. NV was intact including LFCN. She was doing well and epidural was out already, however, post op XR showed loss of correction of the fragment. We discussed this and this tied up to our discussion after surgery when I told her her bone was very soft which is very uncommon for me to see. I explained that I never saw loss of correction with 3 screws but probably her bone quality attributed to this. In light of that we planned a correction procedure where I would place more screws and also add a plate to supplement the construct stability. She was happy with the plan and we performed this surgery (see op note) the following morning. Dr Lambert Objective: Vital Signs Temp Pulse Resp BP Pulse Ox 36.3 C 56 L 11 L 99/63 L 96 05/10/17 13:21 05/10/17 13:51 05/10/17 13:22 05/10/17 13:51 05/10/17 13:51 Laboratory Results 05/10/17 10:11 05/07/17 04:48 05/09/17 05/10/17 05/11/17 05:59 05:59 05:59 Intake Total 1575 1900 2770 Output Total 4900 1000 620 Balance -3325 900 2150 ICD10 Worksheet Patient Problems: Problems Problem Status Onset Post-operative pain Acute
[2017-05-10] MEDS: ASPIRIN EC 81 MG TAB PO SCH (14:34)
[2017-05-10] MEDS: FLUoxetine 20 MG CAP PO SCH (14:34)
[2017-05-10] MEDS: DC NARCS MISC SCH (14:35)
[2017-05-10] MEDS: REGARDING ANTICOAG MISC SCH (14:35)
[2017-05-10] MEDS: SENNOSIDES/DOCUSATE SODIUM TAB PO SCH ×2 (14:35→21:56)
[2017-05-10] MEDS: ACETAMINOPHEN 325 MG TAB PO PRN (21:56)
[2017-05-10] MEDS: DIAZEPAM 2 MG TAB PO PRN (21:56)
[2017-05-11] MEDS: HYDROmorphONE/DILAUDID 4 MG TAB PO SCH ×5 (01:46→14:57)
[2017-05-11 05:35] LABS: HEMOGLOBIN 8.9 g/dL (12.6-16.3); MEAN CELL HEMOGLOBIN 30.7 pg (27.9-34.1); MEAN CELL HEMOGLOBIN CONCENTR. 34.2 g/dL (32.4-36.7); MEAN CELL VOLUME 89.7 fL (81.5-99.8); RED BLOOD CELL COUNT 2.9 10^6/uL (4.18-5.33)
[2017-05-11] MEDS: LEVOTHYROXINE 88 MCG TAB PO SCH (05:52)
[2017-05-11] MEDS: DIAZEPAM 2 MG TAB PO PRN ×2 (05:53→19:31)
[2017-05-11] MEDS: ACETAMINOPHEN 325 MG TAB PO PRN ×2 (05:53→19:32)
[2017-05-11] MEDS: HYDROmorphone HCL/NS/PF 0.4 MG/2 ML SYR IVP PRN ×3 (05:57→08:10)
[2017-05-11 06:03] LABS: ANION GAP 6 mEq/L (8-16); CALCIUM 8.2 mg/dL (8.5-10.4); CARBON DIOXIDE 28 mEq/l (22-31); CHLORIDE 103 mEq/L (97-110); CREATININE 0.6 mg/dL (0.6-1.0); GLOMERULAR FILTRATION RATE > 60; GLUCOSE 87 mg/dL (70-100); POTASSIUM 3.9 mEq/L (3.5-5.2); SODIUM 137 mEq/L (134-144)
[2017-05-11] MEDS: FLUoxetine 20 MG CAP PO SCH (07:51)
[2017-05-11] MEDS: oxyCODONE IR 5 MG TAB PO PRN ×4 (07:51→22:50)
[2017-05-11] MEDS: diphenhydrAMINE 25 MG CAP PO PRN ×2 (07:52→22:55)
[2017-05-11] MEDS: SENNOSIDES/DOCUSATE SODIUM TAB PO SCH ×2 (07:52→19:32)
[2017-05-11] MEDS: ASPIRIN EC 81 MG TAB PO SCH (07:53)
[2017-05-11] MEDS: REGARDING ANTICOAG MISC SCH (10:26)
[2017-05-11] MEDS: DC NARCS MISC SCH (10:26)
--- NOTE | 2017-05-11 11:00 | ASMTCMCOM ---
CM Note CM Note Notes: Pt not ready for DC yet. Plan continues to be home independent with outpt PT. Date Signed: 05/11/2017 11:00 AM Electronically Signed By:Heather Barajas LCSW
[2017-05-11] MEDS ORDERED: HYDROmorphONE/DILAUDID 2 MG TAB PO SCH (14:30)
--- NOTE | 2017-05-11 15:03 | SOAPPROG ---
RYAN Progress Note Assessment/Plan: Assessment: Plan: 05/10/17 14:20 I saw Chelsi on 05/09 which was POD 3 after she obtained post op XR. NV was intact including LFCN. She was doing well and epidural was out already, however, post op XR showed loss of correction of the fragment. We discussed this and this tied up to our discussion after surgery when I told her her bone was very soft which is very uncommon for me to see. I explained that I never saw loss of correction with 3 screws but probably her bone quality attributed to this. In light of that we planned a correction procedure where I would place more screws and also add a plate to supplement the construct stability. She was happy with the plan and we performed this surgery (see op note) the following morning. Dr Lambert 05/11/17 14:43 I saw Chelsi 1:30pm today, POD 1 after revising her MARCUS hardware. She had moved a bit with PT and again with me. I watched her getting up from laying in bed to sitting and walking with walker and commented on her getting to 100 degrees of hip flexion while doing so, and that we must keep her under 80 degrees to avoid the femur pushing against the acetabular fragment, for at least 5-6 weeks. We discussed how to do this with the help of people around her. She did mention that this position is more painful to her. I also told her that I would not be completely confident sending her home with regards to the stability of the construct until she would move a bit and put this construct under stress, including some standing weight bearing stress. The bone, as explained before, was very soft and although we added larger screws and in an an optimal position and a plate with 4 more screws, we may still expect some subtle settling of fragment as it feels the motion stress, which we hope will be minimal and within the range of optimal correction. XR today was a slight different beam trajectory compared with what was done at the end of surgery in OR so I can't compare "apples with apples" but looks similar coverage chow (was reported as stable position by radiologist). We will repeat Xr with me in the room tomorrow morning after she moved a bit more to make sure alignment is the same as we left the OR or within minimal "expected settling in range". I explained to her and family in the room that if we would observe an additional fragment shift which would compromise alignment the next step would be to place a longer plate which would extend to cover the superior ramus pubis where the loss of correction apex is. this will require a separate midline incision in addition to the MARCUS one, and larger scope of surgery which I tried to avoid yesterday as it has implications on surgery time and then on hardware removal. Only once is the past 6 years we needed to add this procedure to a construct that did not maintain stability, this is extremely rare but with her bone quality is not out of the question. Pain chow she is managed well with narcotics and NV is intact. HB is 8.9 Majority of her pain is over the incision/abdominal muscle as expected. I will see her again tomorrow morning and we will do XR to verify correction after she moved a bit Dr Lambert 05/11/17 15:04 05/11/17 15:05 Objective: Vital Signs Temp Pulse Resp BP Pulse Ox 37.2 C 85 16 106/67 94 05/11/17 11:28 05/11/17 11:28 05/11/17 11:28 05/11/17 11:28 05/11/17 11:28 Laboratory Results 05/11/17 04:58 05/11/17 04:58 05/10/17 05/11/17 05/12/17 05:59 05:59 05:59 Intake Total 1900 4900 650 Output Total 1000 1420 Balance 900 3480 650 ICD10 Worksheet Patient Problems: Problems Problem Status Onset Post-operative pain Acute
[2017-05-12] MEDS: oxyCODONE IR 5 MG TAB PO PRN ×3 (02:51→22:56)
[2017-05-12] MEDS: ACETAMINOPHEN 325 MG TAB PO PRN (02:51)
[2017-05-12] MEDS: DIAZEPAM 2 MG TAB PO PRN (02:51)
[2017-05-12] MEDS: LEVOTHYROXINE 88 MCG TAB PO SCH (05:11)
[2017-05-12] MEDS: SENNOSIDES/DOCUSATE SODIUM TAB PO SCH (08:24)
[2017-05-12] MEDS: FLUoxetine 20 MG CAP PO SCH (08:25)
[2017-05-12] MEDS: ASPIRIN EC 81 MG TAB PO SCH (08:26)
[2017-05-12] MEDS ORDERED: ASPIRIN EC 81 MG TAB PO SCH (11:10)
[2017-05-12] MEDS ORDERED: CITRATE DEXTROSE SOLN 500 ML BAG ONE ×2 (12:14→17:15)
[2017-05-12] MEDS ORDERED: LIDOCAINE 1% 300 MG/30 ML SDV ONE (12:14)
[2017-05-12] MEDS ORDERED: ceFAZolin 2 GM/SWFI 20 ML SYR IVP ONE (12:14)
--- NOTE | 2017-05-12 12:37 | PDANEPAE ---
ANE History of Present Illness redo pelvic fixation s/p MARCUS ANE Past Medical History - Cardiovascular History Hx Hypertension: No Hx Arrhythmias: No Hx Chest Pain: No Hx Coronary Artery / Peripheral Vascular Disease: No Hx CHF / Valvular Disease: No Hx Palpitations: No - Pulmonary History Hx COPD: No Hx Asthma/Reactive Airway Disease: Yes Hx Recent Upper Respiratory Infection: No Hx Oxygen in Use at Home: No Hx Sleep Apnea: No Sleep Apnea Screening Result - Last Documented: Negative Pulmonary History Comment: exercise induced asthma - Neurologic History Hx Cerebrovascular Accident: No Hx Seizures: No Hx Dementia: No - Endocrine History Hx Diabetes: No Hypothyroid: Yes - Renal History Hx Renal Disorders: No - Liver History Hx Hepatic Disorders: No - Neurological & Psychiatric Hx Hx Neurological and Psychiatric Disorders: Yes Neurological / Psychiatric History Comment: depression - Cancer History Hx Cancer: No - Congenital Disorder History Hx Congenital Disorders: No - GI History Hx Gastrointestinal Disorders: No - Other Health History Other Health History: none - Chronic Pain History Chronic Pain: No - Surgical History Prior Surgeries: labral reconstruction right hip, L MARCUS on 05/06/17. ANE Review of Systems Review of Systems: - Exercise capacity METS (RN): 5 METS ANE Patient History - Allergies Allergies/Adverse Reactions: No Known Allergies Allergy (Verified 03/29/17 12:43) - Home Medications Home medications: home medication list seen and reviewed Home Medications: Fluoxetine HCl [Prozac 40 mg] 60 mg PO DAILY 03/29/17 [Last Taken 05/06/17] Levothyroxine [Synthroid 88 mcg (*)] 88 mcg PO DAILY06 03/29/17 [Last Taken ] - NPO status NPO Since - Liquids (Date): 05/12/17 NPO Since - Liquids (Time): 00:00 NPO Since - Solids (Date): 05/12/17 NPO Since - Solids (Time): 00:00 - Anes Hx Anes Hx: no prior problems - Smoking Hx Smoking Status: Never smoked - Alcohol Use Alcohol Use: Occasionally - Family Anes Hx Family Hx Anesthesia Complications: none ANE Labs/Vital Signs - Labs Result Diagrams: 05/11/17 04:58 05/11/17 04:58 - Vital Signs Blood Pressure: 110/66 Heart Rate: 86 Respiratory Rate: 16 O2 Sat (%): 90 Height: 160.02 cm Weight: 56.69 kg ANE Physical Exam - Airway Mallampati Score: Class 1 Mouth exam: normal dental/mouth exam - Pulmonary Pulmonary: no respiratory distress - Cardiovascular Cardiovascular: regular rate and rhythym (no recent issues with her anesthetics) - ASA Status ASA Status: II ANE Anesthesia Plan Anesthesia Plan: general endotracheal anesthesia (cell saver, PRBC's if needed. No ELIZABETH)
[2017-05-12] MEDS ORDERED: MIDAZOLAM 2 MG/2 ML VIAL ONE (12:42)
[2017-05-12] MEDS ORDERED: ceFAZolin 2 GM/SWFI 2 GM/20 ML SYR IVP ONE ×2 (12:43→13:00)
[2017-05-12] MEDS ORDERED: ACETAMINOPHEN 500 MG TAB PO ONE (12:43)
[2017-05-12] MEDS ORDERED: PREGABALIN 150 MG CAP PO ONE (12:43)
[2017-05-12] MEDS ORDERED: SCOPOLAMINE HYDROBROMIDE 1 MG/3 DAYS PATCH TD ONE (12:43)
--- NOTE | 2017-05-12 12:48 | SOAPPROG ---
RYAN Progress Note Assessment/Plan: Assessment: Plan: 05/10/17 14:20 I saw Chelsi on 05/09 which was POD 3 after she obtained post op XR. NV was intact including LFCN. She was doing well and epidural was out already, however, post op XR showed loss of correction of the fragment. We discussed this and this tied up to our discussion after surgery when I told her her bone was very soft which is very uncommon for me to see. I explained that I never saw loss of correction with 3 screws but probably her bone quality attributed to this. In light of that we planned a correction procedure where I would place more screws and also add a plate to supplement the construct stability. She was happy with the plan and we performed this surgery (see op note) the following morning. Dr Lambert 05/11/17 14:43 I saw Chelsi 1:30pm today, POD 1 after revising her MARCUS hardware. She had moved a bit with PT and again with me. I watched her getting up from laying in bed to sitting and walking with walker and commented on her getting to 100 degrees of hip flexion while doing so, and that we must keep her under 80 degrees to avoid the femur pushing against the acetabular fragment, for at least 5-6 weeks. We discussed how to do this with the help of people around her. She did mention that this position is more painful to her. I also told her that I would not be completely confident sending her home with regards to the stability of the construct until she would move a bit and put this construct under stress, including some standing weight bearing stress. The bone, as explained before, was very soft and although we added larger screws and in an an optimal position and a plate with 4 more screws, we may still expect some subtle settling of fragment as it feels the motion stress, which we hope will be minimal and within the range of optimal correction. XR today was a slight different beam trajectory compared with what was done at the end of surgery in OR so I can't compare "apples with apples" but looks similar coverage chow (was reported as stable position by radiologist). We will repeat Xr with me in the room tomorrow morning after she moved a bit more to make sure alignment is the same as we left the OR or within minimal "expected settling in range". I explained to her and family in the room that if we would observe an additional fragment shift which would compromise alignment the next step would be to place a longer plate which would extend to cover the superior ramus pubis where the loss of correction apex is. this will require a separate midline incision in addition to the MARCUS one, and larger scope of surgery which I tried to avoid yesterday as it has implications on surgery time and then on hardware removal. Only once is the past 6 years we needed to add this procedure to a construct that did not maintain stability, this is extremely rare but with her bone quality is not out of the question. Pain chow she is managed well with narcotics and NV is intact. HB is 8.9 Majority of her pain is over the incision/abdominal muscle as expected. I will see her again tomorrow morning and we will do XR to verify correction after she moved a bit Dr Lambert 05/11/17 15:04 05/11/17 15:05 05/12/17 12:28 I saw Chelsi today and discussed her situation - I brought in Hip saw-bone model and printed out pictures of "normal MARCUS's with 2 and 3 screws" and then her pre , intra and post op radiographs with the additional fixation used. We then did a new XR with me in the room, verifying beam trajectory is exactly as it was at the end of the surgery 2 days ago. The XR did show minimal, but additional, loss of correction from yesterday. this suggests that the fragment is again, unstable, and even so correction is still acceptable now, I am concerned that it will keep on progressing and the correction in a few days will be unacceptable. We discussed again her bone quality and how rare it is that her bone was so "sponge like" that so much hardware (3 large screws and then a plate with 4 screws) were not enough to keep the fragment stable. We now have to do a mind-shift and look at this like a trauma case where we usually use more extensive plates construct, including buttress ones, to make sure nothing would move regardless of her bone quality. I repeated this discussion with model and picture illustrations with her that came in an hour later, all questions were addressed and the couple was in full agreement and understanding of the situation. We also discussed the option of leaving all as is with the understanding she may keep on losing correction but she prefers not to go that route and wants it corrected and fixed now. Dr Khushboo-Jacoby Objective: Vital Signs Temp Pulse Resp BP Pulse Ox 37.9 C 86 16 110/66 90 L 05/12/17 11:44 05/12/17 11:44 05/12/17 11:44 05/12/17 11:44 05/12/17 11:44 Laboratory Results 05/11/17 04:58 05/11/17 04:58 05/11/17 05/12/17 05/13/17 05:59 05:59 05:59 Intake Total 4900 1300 Output Total 1420 Balance 3480 1300 ICD10 Worksheet Patient Problems: Problems Problem Status Onset Post-operative pain Acute
[2017-05-12] MEDS ORDERED: REMIFENTANIL HCL 1 MG VIAL ONE (12:52)
[2017-05-12] MEDS ORDERED: fentaNYL 100 MCG/2 ML INJ ONE ×2 (12:52→20:16)
[2017-05-12] MEDS ORDERED: PROPOFOL/EMULSION 500 MG/50 ML BOTTLE IV ONE ×2 (12:53→15:21)
[2017-05-12] MEDS ORDERED: LIDOCAINE HCL 160 MG/4 ML LTA KIT TP ONE (12:54)
[2017-05-12] MEDS ORDERED: LIDOCAINE 2% 100 MG/5 ML SYR ONE (12:54)
[2017-05-12] MEDS ORDERED: DEXAMETHASONE 4 MG/ML VIAL ONE ×2 (13:11)
[2017-05-12] MEDS ORDERED: ONDANSETRON 4 MG/2 ML VIAL ONE ×2 (13:13→20:19)
[2017-05-12] MEDS ORDERED: TRANEXAMIC ACID 1,000 MG in NS 100 ML IV ONE ×2 (13:16→16:55)
[2017-05-12] MEDS ORDERED: MIDAZOLAM 2 MG/2 ML VIAL IVP ONE (14:01)
[2017-05-12] MEDS ORDERED: TRANEXAMIC ACID 3,000 MG in NS 50 ML IRR ONE ×2 (17:01→17:24)
[2017-05-12] MEDS ORDERED: CALCIUM CHLORIDE 1 GM/10 ML INJ ONE (17:48)
[2017-05-12] MEDS ORDERED: PROPOFOL 200 MG/20 ML VIAL ONE (18:09)
[2017-05-12] MEDS ORDERED: ceFAZolin 1 GM VIAL ONE ×2 (18:51)
[2017-05-12] MEDS ORDERED: ACETAMINOPHEN 500 MG TAB PO PRN (19:13)
[2017-05-12] MEDS ORDERED: PROMETHAZINE HCL 25 MG/ML INJ IVP PRN (19:13)
[2017-05-12] MEDS ORDERED: LABETALOL HCL 50 MG/10 ML SYR IVP PRN (19:13)
[2017-05-12] MEDS ORDERED: NALOXONE HCL 0.4 MG/ML INJ IVP PRN (19:13)
[2017-05-12] MEDS ORDERED: METOCLOPRAMIDE 10 MG/2 ML VIAL IVP PRN (19:13)
[2017-05-12] MEDS ORDERED: LR 500 ML IV PRN (19:13)
[2017-05-12] MEDS ORDERED: ALBUTEROL 3 ML DEYVIAL IH PRN (19:13)
[2017-05-12] MEDS ORDERED: OXYCODONE/APAP 5/325 TAB PO PRN (19:13)
[2017-05-12] MEDS ORDERED: MEPERIDINE 25 MG/ML SYR IVP PRN (19:13)
[2017-05-12] MEDS ORDERED: DEXAMETHASONE 4 MG/ML VIAL IVP PRN (19:13)
[2017-05-12] MEDS ORDERED: HYDROCODONE/APAP 5/325 TAB PO PRN (19:13)
[2017-05-12] MEDS ORDERED: ONDANSETRON 4 MG/2 ML VIAL IVP PRN (19:13)
[2017-05-12] MEDS ORDERED: LACTULOSE 20 GM/30 ML UDCUP PO PRN (20:07)
[2017-05-12] MEDS ORDERED: BISACODYL 10 MG SUPP PR PRN (20:07)
[2017-05-12] MEDS ORDERED: POLYETHYLENE GLYCOL 3350 17 GM PKT PO PRN (20:07)
[2017-05-12] MEDS: fentaNYL 100 MCG/2 ML INJ IVP PRN ×2 (20:17→20:24)
[2017-05-12 20:24] LABS: HEMATOCRIT 30.2 % (38.0-47.0); HEMOGLOBIN 10.6 g/dL (12.6-16.3); LIPEMIA HEMOLYSIS FLAG 90 (0-99); MEAN CELL HEMOGLOBIN 31.2 pg (27.9-34.1); MEAN CELL HEMOGLOBIN CONCENTR. 35.1 g/dL (32.4-36.7); MEAN CELL VOLUME 88.8 fL (81.5-99.8); PLATELET COUNT 250 10^3/uL (150-400); RED CELL DISTRIBUTION WIDTH 13.5 % (11.5-15.2)
[2017-05-12 20:50] LABS: % IMMATURE GRANULYOCYTES 1.5 % (0.0-1.1); ABSOLUTE IMMATURE GRANULOCYTES 0.14 10^3/uL (0.00-0.10); ABSOLUTE NRBC COUNT 0.02 10^3/uL (0-0.01); ADD DIFF? NO; ADD SCAN? NO; ATYPICAL LYMPHOCYTE FLAG 40 (0-99); LEFT SHIFT FLG 20 (0-99); NRBC-AUTO% 0.2 % (0.0-0.2); PLATELET CLUMPS FLAG 10 (0-99)
[2017-05-12 20:56] LABS: ADD MORPH? NO
[2017-05-12] MEDS ORDERED: LR 1,000 ML IV ONE (21:30)
[2017-05-12] MEDS ORDERED: ceFAZolin 2 GM/DEXTROSE 100 ML IV SCH (22:00)
[2017-05-12] MEDS: HYDROmorphone HCL/NS/PF 0.4 MG/2 ML SYR IVP PRN ×2 (22:05→23:02)
[2017-05-12] MEDS: NS 1,000 ML IV SCH (23:16)
--- NOTE | 2017-05-12 23:16 | SUROPNOTE ---
HAILEY Operative Report - Surgery surgery was performed at [facility] 05/12/17 Diagnosis: Rightlooseningof hardware and loss of position/alignemnt 2~days post revision~right MARCUS Operation: Revision Right hardware placement for Francisca Acetabular Osteotomy (MARCUS) Surgeon: Ryan Lambert MD Education Supervisor:Panfilo ROWLAND Anesthetic: General Procedure: General anesthetic. Antibiotics given. Cell saver in use. Fluoroscopy. C-arum confirmed loss of correction since last surgery. Vertical skin incision just lateral to symphyses pubis and medial to femoral bundle which was marked with ultrasound prior to surgery.. Dissection according to anatomical layers to medial superior ramus pubis. Exposure of bony pubis towards pubic MARCUS cut. C-arm confirm reduction while pushing down on medial part of CAF with fish mouth osteotome. Skin incision just distal to ASIS trough previous incision. Inguinal ligament + Sartorious were retracted medially, taking the LFCN with them, protecting it. Inner ilium was dissected from iliacus muscle bluntly, with a cob and swab. 5mm screw was backed out and 1 Shanz pin was drilled in to assist in external rotation of fragment to achieve better anterior coverage. The correction was verified with flat plate and fixated with several KW including one into the lateral ramus pubis medial to the MARCUS ramus cut. A recon locked plate was position from medial incision into the main ilium under the iliacus and vascular bundle. This served as buttress plate to prevent medial migration of the fragment, and was locked medial at the ramus pubis and then laterally at the ilium. Two more recon 3.5mm locked plates were then fixed with multiple screws into ilium and verifying correction with flat plate in between to ensure optimal correction. A 4mm screw was then placed between medial CAF and the ramus pubis and one more 5mm screw was placed from iliac crest to CAF lateraly. Both screws used a washer. ~ HW count: 3 recon plate with multiple locking and non-locking screws - into CAF 5 screws. 1 5mm screw with washer. 1 4mm screw with washer. Inguinal ligament and Sartorious were attached back to ASIS through drill holes. Incision was closed according to soft tissue layers. Skin was closed with subdermal Monocryl. Flat plateshots were obtained to confirm final position/correction. After surgery Amymoved both lower limbs and had no NV motor compromise. Bleeding: Bleeding was controlled via two units of TXA IV and some topical TXA in the incision. 900cc into cell-saver, 400 of blood products were returned to patient. One additional blood unit was given. Post op instructions: 1. Nonweight bearing crutches for 6 weeks 2. Continuous SCD and Anti coag tomorrow 6pm, 40mg Lovenox 3. Avoid hip flexion past 80 and hip External rotation - Hip brace will be added tomorrow, locked at 50 degrees flexion. Kind regards, Dr. Ryan Lambert
[2017-05-13] MEDS: SENNOSIDES/DOCUSATE SODIUM TAB PO SCH ×5 (00:32→20:10)
[2017-05-13] MEDS: ceFAZolin 2 GM/DEXTROSE 100 ML IV SCH ×2 (01:09→09:06)
[2017-05-13] MEDS: DIAZEPAM 2 MG TAB PO PRN ×3 (01:17→20:34)
[2017-05-13] MEDS: HYDROmorphone HCL/NS/PF 0.4 MG/2 ML SYR IVP PRN (02:45)
[2017-05-13] MEDS: oxyCODONE IR 5 MG TAB PO PRN ×3 (02:48→20:34)
[2017-05-13] MEDS: ACETAMINOPHEN 325 MG TAB PO PRN (04:01)
[2017-05-13 05:09] LABS: HEMATOCRIT 23.9 % (38.0-47.0); HEMOGLOBIN 8.4 g/dL (12.6-16.3); MEAN CELL HEMOGLOBIN CONCENTR. 35.1 g/dL (32.4-36.7); MEAN CELL VOLUME 88.2 fL (81.5-99.8); RED BLOOD CELL COUNT 2.71 10^6/uL (4.18-5.33)
[2017-05-13 05:29] LABS: ANION GAP 5 mEq/L (8-16); CALCIUM 7.4 mg/dL (8.5-10.4); CARBON DIOXIDE 29 mEq/l (22-31); CHLORIDE 101 mEq/L (97-110); CREATININE 0.6 mg/dL (0.6-1.0); GLOMERULAR FILTRATION RATE > 60; GLUCOSE 100 mg/dL (70-100); SODIUM 135 mEq/L (134-144)
[2017-05-13] MEDS: LEVOTHYROXINE 88 MCG TAB PO SCH (05:36)
[2017-05-13] MEDS: FLUoxetine 20 MG CAP PO SCH (09:06)
[2017-05-13] MEDS: PANTOPRAZOLE SODIUM 40 MG TAB PO SCH (09:06)
[2017-05-13] MEDS: ASPIRIN EC 81 MG TAB PO SCH (09:07)
[2017-05-13] MEDS ORDERED: HYDROmorphONE/DILAUDID 1 MG/ML INJ IVP ONE (09:50)
[2017-05-13] MEDS ORDERED: NALOXONE HCL 0.4 MG/ML INJ IVP PRN (09:50)
[2017-05-13] MEDS: NS 1,000 ML IV SCH ×2 (10:08→20:15)
[2017-05-13] MEDS: HYDROmorphONE/DILAUDID 6 MG/30 ML PCA IV PRN (10:08)
--- NOTE | 2017-05-13 14:10 | SOAPPROG ---
RYAN Progress Note Assessment/Plan: Assessment: Plan: 05/10/17 14:20 I saw Chelsi on 05/09 which was POD 3 after she obtained post op XR. NV was intact including LFCN. She was doing well and epidural was out already, however, post op XR showed loss of correction of the fragment. We discussed this and this tied up to our discussion after surgery when I told her her bone was very soft which is very uncommon for me to see. I explained that I never saw loss of correction with 3 screws but probably her bone quality attributed to this. In light of that we planned a correction procedure where I would place more screws and also add a plate to supplement the construct stability. She was happy with the plan and we performed this surgery (see op note) the following morning. Dr Lambert 05/11/17 14:43 I saw Chelsi 1:30pm today, POD 1 after revising her MARCUS hardware. She had moved a bit with PT and again with me. I watched her getting up from laying in bed to sitting and walking with walker and commented on her getting to 100 degrees of hip flexion while doing so, and that we must keep her under 80 degrees to avoid the femur pushing against the acetabular fragment, for at least 5-6 weeks. We discussed how to do this with the help of people around her. She did mention that this position is more painful to her. I also told her that I would not be completely confident sending her home with regards to the stability of the construct until she would move a bit and put this construct under stress, including some standing weight bearing stress. The bone, as explained before, was very soft and although we added larger screws and in an an optimal position and a plate with 4 more screws, we may still expect some subtle settling of fragment as it feels the motion stress, which we hope will be minimal and within the range of optimal correction. XR today was a slight different beam trajectory compared with what was done at the end of surgery in OR so I can't compare "apples with apples" but looks similar coverage chow (was reported as stable position by radiologist). We will repeat Xr with me in the room tomorrow morning after she moved a bit more to make sure alignment is the same as we left the OR or within minimal "expected settling in range". I explained to her and family in the room that if we would observe an additional fragment shift which would compromise alignment the next step would be to place a longer plate which would extend to cover the superior ramus pubis where the loss of correction apex is. this will require a separate midline incision in addition to the MARCUS one, and larger scope of surgery which I tried to avoid yesterday as it has implications on surgery time and then on hardware removal. Only once is the past 6 years we needed to add this procedure to a construct that did not maintain stability, this is extremely rare but with her bone quality is not out of the question. Pain chow she is managed well with narcotics and NV is intact. HB is 8.9 Majority of her pain is over the incision/abdominal muscle as expected. I will see her again tomorrow morning and we will do XR to verify correction after she moved a bit Dr Lambert 05/11/17 15:04 05/11/17 15:05 05/12/17 12:28 I saw Chelsi today and discussed her situation - I brought in Hip saw-bone model and printed out pictures of "normal MARCUS's with 2 and 3 screws" and then her pre , intra and post op radiographs with the additional fixation used. We then did a new XR with me in the room, verifying beam trajectory is exactly as it was at the end of the surgery 2 days ago. The XR did show minimal, but additional, loss of correction from yesterday. this suggests that the fragment is again, unstable, and even so correction is still acceptable now, I am concerned that it will keep on progressing and the correction in a few days will be unacceptable. We discussed again her bone quality and how rare it is that her bone was so "sponge like" that so much hardware (3 large screws and then a plate with 4 screws) were not enough to keep the fragment stable. We now have to do a mind-shift and look at this like a trauma case where we usually use more extensive plates construct, including buttress ones, to make sure nothing would move regardless of her bone quality. I repeated this discussion with model and picture illustrations with her that came in an hour later, all questions were addressed and the couple was in full agreement and understanding of the situation. We also discussed the option of leaving all as is with the understanding she may keep on losing correction but she prefers not to go that route and wants it corrected and fixed now. Dr Lambert 05/13/17 14:07 Saw Chelsi this morning POD last revision. NV intact. She is struggling with pain, as expected, but we stay on top of it with [facility]fil[facility]'s pain management which also includes [employer]. I expect her to fill much better tomorrow. will keep folly in so she doesn't need to go to rest rooms as I dont anticipate her needing to go otherwise, she still did not pass gas. The brace has arrived and is set, will put on tomorrow when pain s better. Xr looks good this morning. Hb is 8.4. Dr Lambert 05/13/17 14:10 Objective: Vital Signs Temp Pulse Resp BP Pulse Ox 37.3 C 71 16 108/68 94 05/13/17 14:00 05/13/17 14:00 05/13/17 14:00 05/13/17 14:00 05/13/17 14:00 Laboratory Results 05/13/17 04:37 05/13/17 04:37 05/12/17 05/13/17 05/14/17 05:59 05:59 05:59 Intake Total 1300 5564 Output Total 7130 Balance 1300 7880 ICD10 Worksheet Patient Problems: Problems Problem Status Onset Post-operative pain Acute
[2017-05-13] MEDS: ENOXAPARIN 40 MG/0.4 ML SYR SC SCH (20:10)
[2017-05-14] MEDS: HYDROmorphONE/DILAUDID 6 MG/30 ML PCA IV PRN (00:04)
[2017-05-14] MEDS: oxyCODONE IR 5 MG TAB PO PRN ×6 (02:12→21:12)
[2017-05-14] MEDS: ACETAMINOPHEN 325 MG TAB PO PRN ×2 (04:49→13:44)
[2017-05-14] MEDS: DIAZEPAM 2 MG TAB PO PRN ×2 (04:49→21:12)
[2017-05-14] MEDS: LEVOTHYROXINE 88 MCG TAB PO SCH (05:43)
[2017-05-14] MEDS: NS 1,000 ML IV SCH (05:45)
[2017-05-14] MEDS: ASPIRIN EC 81 MG TAB PO SCH (09:41)
[2017-05-14] MEDS: MAGNESIUM HYDROXIDE 30 ML UDCUP PO PRN (09:41)
[2017-05-14] MEDS: ENOXAPARIN 40 MG/0.4 ML SYR SC SCH (09:41)
[2017-05-14] MEDS: FLUoxetine 20 MG CAP PO SCH (09:42)
[2017-05-14] MEDS: PANTOPRAZOLE SODIUM 40 MG TAB PO SCH (09:42)
[2017-05-14] MEDS: SENNOSIDES/DOCUSATE SODIUM TAB PO SCH ×2 (09:42→20:23)
--- NOTE | 2017-05-14 11:42 | SOAPPROG ---
RYAN Progress Note Assessment/Plan: Assessment: Plan: 05/10/17 14:20 I saw Chelsi on 05/09 which was POD 3 after she obtained post op XR. NV was intact including LFCN. She was doing well and epidural was out already, however, post op XR showed loss of correction of the fragment. We discussed this and this tied up to our discussion after surgery when I told her her bone was very soft which is very uncommon for me to see. I explained that I never saw loss of correction with 3 screws but probably her bone quality attributed to this. In light of that we planned a correction procedure where I would place more screws and also add a plate to supplement the construct stability. She was happy with the plan and we performed this surgery (see op note) the following morning. Dr Lambert 05/11/17 14:43 I saw Chelsi 1:30pm today, POD 1 after revising her MARCUS hardware. She had moved a bit with PT and again with me. I watched her getting up from laying in bed to sitting and walking with walker and commented on her getting to 100 degrees of hip flexion while doing so, and that we must keep her under 80 degrees to avoid the femur pushing against the acetabular fragment, for at least 5-6 weeks. We discussed how to do this with the help of people around her. She did mention that this position is more painful to her. I also told her that I would not be completely confident sending her home with regards to the stability of the construct until she would move a bit and put this construct under stress, including some standing weight bearing stress. The bone, as explained before, was very soft and although we added larger screws and in an an optimal position and a plate with 4 more screws, we may still expect some subtle settling of fragment as it feels the motion stress, which we hope will be minimal and within the range of optimal correction. XR today was a slight different beam trajectory compared with what was done at the end of surgery in OR so I can't compare "apples with apples" but looks similar coverage chow (was reported as stable position by radiologist). We will repeat Xr with me in the room tomorrow morning after she moved a bit more to make sure alignment is the same as we left the OR or within minimal "expected settling in range". I explained to her and family in the room that if we would observe an additional fragment shift which would compromise alignment the next step would be to place a longer plate which would extend to cover the superior ramus pubis where the loss of correction apex is. this will require a separate midline incision in addition to the MARCUS one, and larger scope of surgery which I tried to avoid yesterday as it has implications on surgery time and then on hardware removal. Only once is the past 6 years we needed to add this procedure to a construct that did not maintain stability, this is extremely rare but with her bone quality is not out of the question. Pain chow she is managed well with narcotics and NV is intact. HB is 8.9 Majority of her pain is over the incision/abdominal muscle as expected. I will see her again tomorrow morning and we will do XR to verify correction after she moved a bit Dr Lambert 05/11/17 15:04 05/11/17 15:05 05/12/17 12:28 I saw Chelsi today and discussed her situation - I brought in Hip saw-bone model and printed out pictures of "normal MARCUS's with 2 and 3 screws" and then her pre , intra and post op radiographs with the additional fixation used. We then did a new XR with me in the room, verifying beam trajectory is exactly as it was at the end of the surgery 2 days ago. The XR did show minimal, but additional, loss of correction from yesterday. this suggests that the fragment is again, unstable, and even so correction is still acceptable now, I am concerned that it will keep on progressing and the correction in a few days will be unacceptable. We discussed again her bone quality and how rare it is that her bone was so "sponge like" that so much hardware (3 large screws and then a plate with 4 screws) were not enough to keep the fragment stable. We now have to do a mind-shift and look at this like a trauma case where we usually use more extensive plates construct, including buttress ones, to make sure nothing would move regardless of her bone quality. I repeated this discussion with model and picture illustrations with her that came in an hour later, all questions were addressed and the couple was in full agreement and understanding of the situation. We also discussed the option of leaving all as is with the understanding she may keep on losing correction but she prefers not to go that route and wants it corrected and fixed now. Dr Lambert 05/13/17 14:07 Saw Chelsi this morning POD last revision. NV intact. She is struggling with pain, as expected, but we stay on top of it with Panfilo's pain management which also includes [employer]. I expect her to fill much better tomorrow. will keep folly in so she doesn't need to go to rest rooms as I dont anticipate her needing to go otherwise, she still did not pass gas. The brace has arrived and is set, will put on tomorrow when pain s better. Xr looks good this morning. Hb is 8.4. Dr Lambert 05/13/17 14:10 05/14/17 11:39 Saw Chelsi this morning POD 2 after last procedure. Doing much better then yesterday, pain controlled and we now wean her off the [employer]. she passes gaz with no issues, some abdominal distention but non tender. NV intact. We started Lovenox for the next 3 weeks. I placed the brace on her and explained the restriction, recommendations etc. She is ready to go home today and we will see her next week Dr Lambert 05/14/17 11:42 Objective: Vital Signs Temp Pulse Resp BP Pulse Ox 36.6 C 90 16 108/67 92 05/14/17 11:28 05/14/17 11:28 05/14/17 11:28 05/14/17 11:28 05/14/17 11:28 Laboratory Results 05/13/17 04:37 05/13/17 04:37 05/13/17 05/14/17 05/15/17 05:59 05:59 05:59 Intake Total 4907 2200 500 Output Total 2236 900 950 Balance 2954 1300 -450 ICD10 Worksheet Patient Problems: Problems Problem Status Onset Post-operative pain Acute
--- NOTE | 2017-05-14 16:40 | ASMTCMCOM ---
CM Note CM Note Notes: OT rec home vs. HHC, PT rec HHC vs. outpatient. Spoke w pt regd' therapy recs, pt report she feels safe to d/c home w family support. Pt will d/c to mother home in [facility] for a couple of weeks and feels she does not need HHC. Pt wants to rent hospital bed from [place] and requires a script, pt referred to MD who would provide script. Plan remains d/c home independent. CM available for changes/needs. Date Signed: 05/14/2017 04:40 PM Electronically Signed By:MARK Landin
[2017-05-15] MEDS: oxyCODONE IR 5 MG TAB PO PRN ×3 (01:21→09:35)
[2017-05-15] MEDS: LEVOTHYROXINE 88 MCG TAB PO SCH (04:52)
[2017-05-15 08:09] VITALS: BP 114/63; PULSE 93; RESP 16; TEMP 98.6; O2SAT 91
[2017-05-15] MEDS: FLUoxetine 20 MG CAP PO SCH (09:35)
[2017-05-15] MEDS: SENNOSIDES/DOCUSATE SODIUM TAB PO SCH (09:35)
[2017-05-15] MEDS: PANTOPRAZOLE SODIUM 40 MG TAB PO SCH (09:36)
[2017-05-15] MEDS: ASPIRIN EC 81 MG TAB PO SCH (09:36)
[2017-05-15] MEDS: ENOXAPARIN 40 MG/0.4 ML SYR SC SCH (09:36)
[2017-05-15] MEDS: MAGNESIUM HYDROXIDE 30 ML UDCUP PO PRN (09:41)
--- NOTE | 2017-05-15 12:35 | ASDISCHSUM ---
Discharge Information Plan Status:Home with No Needs Medically Cleared to Leave: Discharge Date:05/15/2017 12:04 PM CM D/C Disposition:Home, Routine, Self-Care ADT D/C Disposition:Home, Routine, Self-Care Projected Discharge Date:05/15/2017 12:04 PM Transportation at D/C: Discharge Delay Reason: Follow-Up Date:05/15/2017 12:04 PM Discharge Slot: Final Diagnosis: Placement Information Patient Contact Information Contact Name:KARINA Relationship: Address:[address] Work Phone: City:[place] Phone: [facility]/Zip Code:[place] [address] Email: Financial Information Financial Class:HMO and PPO Plans Primary Plan Desc:[facility] Primary Plan Number:[id number] Secondary Plan Desc: Secondary Plan Number: Assessment Information [facility] CM Progress Note CM Note CM Note Notes: PT/OT clear pt for home. Anticipate pt will d/c when medically stable. CM available for changes/needs. Date Signed: 05/07/2017 03:14 PM Electronically Signed By:MARK Landin [facility] CM Progress Note CM Note CM Note Notes: Pt not ready for DC yet. Plan continues to be home independent with outpt PT. Date Signed: 05/11/2017 11:00 AM Electronically Signed By:Heather Barajas LCSW [facility] CM Progress Note CM Note CM Note Notes: OT rec home vs. HHC, PT rec HHC vs. outpatient. Spoke w pt regd' therapy recs, pt report she feels safe to d/c home w family support. Pt will d/c to mother home in [facility] for a couple of weeks and feels she does not need HHC. Pt wants to rent hospital bed from [place] and requires a script, pt referred to MD who would provide script. Plan remains d/c home independent. CM available for changes/needs. Date Signed: 05/14/2017 04:40 PM Electronically Signed By:MARK Landin [facility] CM Progress Note CM Note CM Note Notes: Pt medically stable for d/c with fmaily support, no CM d/c needs identified. Date Signed: 05/15/2017 12:34 PM Electronically Signed By:MARK Landin Intervention Information
== END 2017-05-15 12:04 | disposition home or self-care (01) | DRG 481 ==
LOC: F3N 05:44
PROVIDERS: ADMIT Orthopaedic Surgery Sports Medicine; ATTEND Orthopaedic Surgery Sports Medicine
PROC: 0Q840ZZ Division of Right Acetabulum, Open Approach (ICD-10-PCS; principal; 2017-05-06 07:15)
PROC: 0SS904Z Reposition Right Hip Joint with Internal Fixation Device, Open Approach (ICD-10-PCS; principal; 2017-05-06 07:15)
PROC: 30230N1 Transfusion of Nonautologous Red Blood Cells into Peripheral Vein, Open Approach (ICD-10-PCS; 2017-05-10)
PROC: 0QH Lower Bones, Insertion (ICD-10-PCS; 2017-05-10)
PROC: 0QH Lower Bones, Insertion (ICD-10-PCS; 2017-05-12)
PROC: 0QH204Z Insertion of Internal Fixation Device into Right Pelvic Bone, Open Approach (ICD-10-PCS; 2017-05-12)
DX: Q65.89 Other specified congenital deformities of hip (principal); T84.328A Displacement of other bone devices, implants and grafts, initial encounter; M83.9 Adult osteomalacia, unspecified
CPT/HCPCS: 97116-GP; 97161-GP; 97166-GO; 97530-GP; 97535-GO; C1713; J0171; J0690; J1100; J1170; J1650; J2001; J2250; J2370; J2405; J2704; J2765; J3010; J7060; P9016

== ENCOUNTER 2017-09-23 11:21 | Day surgery (SDC) | payer OTHER ==
--- NOTE | 2017-09-22 20:13 | PDGENHP ---
History and Physical - Chief Complaint RIGHT HIP PAIN - History of Present Illness Diagnosis: 1. Right~Hip Pain, acute on chronic 2. ~~S/P Labral recon 3 years ago 3. Left hip pain, less symptomatic HISTORY OF PRESENT ILLNESS: Jonathanis a 47 y.o.~~active female~who I have had the pleasure to consult on today. I have enjoyed meeting her. She~lives in [place]. 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 ~She~is ; she~has four~children. ~Jonathanenjoys [place] outdoor activities. Chelsi's right~hip pain started almost 10~years ago, with no~recalled trauma or injury, and with no~previous complaints. Jonathandoes not have~a known history of hip dysplasia. She saw Dr. Matta 3 years ago and was diagnosed with GLENN, he did a Right hip scope with labral reconstruction. She had significant improvement after surgery and got back to running and snowboarding, although she was never pain free. About 1 year after her surgery her pain started returning and has gotten slowly progressively worse for the past 2 years. Presentation today is of anterior and lateral right~hip pain. ~The hip does~ wake her~at night and does~click and catch on her. Sitting can be uncomfortable~ for her. Jonathandoes not~report suffering from lower back pain episodes. Jonathanhas~participated in physical therapy and has~tried other conservative measures including dry needling, chiropractic treatments and massage therapy. She has had 3 SI injections on the Right side, most recently 2 months ago, they provide significant relief for roughly 2 weeks. She has had 1 hip injection 4 months ago which provided complete relief for several hours, but no long lasting help. She~has not~received sufficient symptomatic improvement. Jonathanhas~utilized medication for pain management, including NSAID~and ultram. Chelsi Pagehas used medication for 3-4 years. Jonathandenies issues with the left~hip. ~ Jonathanunderstands that she~has a hip and pelvis problem which should be researched and wishes to get a better understanding of her~hip status, followed by an establishment of a treatment strategy, hoping she~would be able to get back to her~well being active life. History: Past medical history: ~ Hypothyroidism Relevant familial history: None which is relevant Past surgical history: No. Surgery Anesthesia Year Outcome 1 Appendectomy General 1991 Good 2 Left foot surgery General 2007 Good 3 Right hip scope General 2014 Not satisfactory Jonathandenies problematic issues with general anesthesia in the past. I have reviewed, verified and agree with the past medical, surgical, family and social history. Current Medications:~has a current medication list which includes the following prescription(s): levothyroxine. ALLERGIES:~has No Known Allergies. Objective: Physical Examination: Jonathanis 5~feet 3~inches tall and weighs 125~Lbs. Jonathanis AAO x3; she~is well- nourished, in NAD. Skin is warm and dry. ~Breathing is non-labored. ~CV with RRR by pulse. Abdomen is soft, NTND. Currently, she~walks with a normal~gait. Trendelenburg sign is positive and proprioception is reduced, right~side. She~presents with mild~signs of joint laxity. Beightons Score: 2 Lower spine examination is negative~for sciatic or femoral nerve irritation with negative~SLR &~femoral stretch tests. Range of motion of the spine is normal~for flexion, extension, and rotations, with no~associated pain. Strength, Sensation and pulses are normal - bilaterally Ankles and knees exams are normal~and no~mal-alignment is evident. She~has no leg length discrepancy. Thigh circumference is symmetric~with no evidence for muscle atrophy~on both~ sides. Hip ROM (degrees): FL ER At 90~hip FL IR At 90~hip FL AB AD EX IR Neutral hip ER Neutral hip R 110 45 15 45 10 5 45 30 L 115 50 15 45 5 5 50 25 Specific hip and pelvis tests: Quadrant STACI Roll Add. Longus R +++ +++ Negative Negative L ++ ++ Negative Negative Glut. Med ITB Pos. Imp R ++ 5/5 strength Negative 5/5 strength Negative L Negative 5/5 strength Negative 5/5 strength Negative Squeeze test measured normal Bony Symphysis pubis is pain free~to touch while concentric activity of the rectus abdominis, does not~produce pain at its insertion. Ilio Psos specific tests are positive for pain during cycling for the right hip~ and no snap HF has good strength with minimal pain on the right hip. No~capsule tenderness Greater trochanteric burse is pain free~on both hips. Piriformis tests: FAIR is negative, with no~local signs of neuritis related to sciatic nerve. SIJs examination is normal~with normal~STACI in relation and local tenderness. Hamstrings tests are negative~functional contraction and negative~tendinopathy both hips. On a daily basis, the following percentages reflect Chelsi's overall total pain: Deep hip: 75% Glut: 25% Imaging: Radiology studies which I have personally reviewed, analyzed and measured are below: XR: AP of the hip and pelvis: Performed in a good~technique Coccyx to pubic symphysis distance 1.5~cm. 0~degrees caudal/cephal [place] Lines are preserved. Minimal~Pathological signs are seen in the Symphysis Pubis. Minimal~Pathological signs are seen at the Ischial tuberosity. ~ Specific measurements show: NSA~ LCE Sourcil~Angle Sharp's angle Lat. Cam Lat. Pincer C.Over~sign Head~Coverage % ATDmm R N 30 5 41 - - - 72 N L N 35 1 36 - - - N N Pos. wall sign ISS NAD ~~Dysplasia Comments R Negative Negative 12~mm Negative L Negative Negative 10~mm Negative Sclerosis Sup. Lat. OA Cysts Joint Space-WBZ Joint Space-Medial R + + + (femoral) 4.1~mm 4.6~mm L Negative Negative Negative 4.7~mm 4.0~mm X Table lateral: Anterior cam lesion is seen~on the left hip. Alpha Angle: ~ Right 38~dergrees Left 51~degrees Impression and plan: Jonathanis a 47 y.o.~active female~suffering from symptomatic right~hip pain likely due to either scar tissue and adhesions and possibly~borderline instability causing significant disability to her~and altering her~sport and life activities. Physical examination, imaging, and her~story correspond with the diagnosis mentioned above. Post surgical scar tissue and adhesions is a one of the commonest reasons for revision hip scope and is usually addressed well via revision hip scope and scar tissue removal. I explained that hip Instability (Dysplasia) is a condition wherein the hip joint has excessive play and instability due to a variety of factors, including the depth and adequacy of the socket, the orientation of the femur bone, and ligament laxity around the hip joint. Dysplasia ranges in severity from borderline to medhat, with treatment options being specific to the specific nature of the problem. Left untreated, the instability in the hip joint can cause progressive tearing of the labrum and deterioration of the surface cartilage, ultimately resulting in progressive osteoarthritis of the hip. I reviewed conservative treatment options for dysplasia including activity modification to avoid positions of instability, physical therapy, non-steroidal anti-inflammatory medications, and various injections (corticosteroid and PRP) aimed at reducing inflammation in the hip joint or/and preventing dynamic instability and impingement. Although these measures may help to buy time, they are not a definitive solution to the problem given the underlying abnormality in the shape of the hip joint. Patients who have failed conservative management and continue to experience symptoms are candidates for definitive surgical treatment, which may consist of hip arthroscopy alone or in combination with more invasive bony realignment procedures of the hip socket and/or femur called periacetabular osteotomy (MARCUS) or derotational femoral osteotomy (DFO). Hip arthroscopy typically includes treating the labrum with either repair or reconstruction of the torn labrum; as well as addressing the underlying abnormalities by restoring the normal shape of the hip joint. ~If the cartilage is damaged a Microfracture surgical procedure may also be necessary to help stimulate the growth of fibrocartilage. If a patient requires a labral reconstruction or a Microfracture, the initial rehabilitation from the surgery may take longer, but the intermediate project manager results are typically favorable. I have explained that because of her age and gender, the results of hip arthroscopy are less reproducible/predictable than with younger patients or male patients of the same age. I reviewed the technical aspects of periacetabular osteotomy (MARCUS) including risks, benefits, and expected course of recovery. Chelsi~understands that MARCUS is an inpatient procedure carried out through two medium sized incisions on the front and back of the hip joint. The hip socket is cut, realigned, and stabilized with 2 3 internal screws. Risks include infection, bleeding, injury to nearby nerves or vessels, stiffness, persistent pain, instability, failure of bony healing, implant related complications, and venous thromboembolic disease. Rarely, revision surgery may be required to address these problems. Risks, potential complications, side effects and recovery from surgical procedure were discussed in length. We explained how this surgery is an open procedure, and though patients tend to do well in the long-term, it involves significant pain in the first 2-4 weeks post-op and a rather lengthy rehab.~Overall recovery takes approximately 6 12~months depending on the extent of damage and degree of repair. Jonathanunderstands that she~will undergo hip arthroscopy 1 week prior to the MARCUS to address damage inside the hip joint. Jonathanunderstands that hip arthroscopy and MARCUS are two separate procedures that are best performed one week apart, with the arthroscopy commencing first to "tighten up" any pathology evident in the hip joint (labral repair, etc.) and the MARCUS open procedure occurring 7-10 days later to realign the acetabulum. Jonathanwill review the info presented. In order to obtain more detailed information regarding the alignment, orientation, and shape of the bony hip and pelvis I will order a CT scan to be performed. The results of the CT scan, including femoral torsion and acetabular version measured values and 3D images, will aid me in deciding on the best treatment strategy and surgical pre-planning. In order to better evaluate the soft tissues and cartilage of the hip joint, I will order an MRI scan. Jonathanis going to contact us after completing her~imaging studies. At this point we do NOT conclude that she suffers from hip instability. We need both MR and CT to be able to establish a formal diagnosis and suggest a treatment strategy. Jonathanis happy with this plan. I have also supplied her~with handouts, outlining the expected surgical treatment and rehab involved. I wish~Jonathanall the best, ~~ Art Messina MD History Information - Allergies/Home Medication List Allergies/Adverse Reactions: No Known Allergies Allergy (Verified 09/06/17 11:44) Home Medications: Fluoxetine HCl [Prozac 40 mg] 03/29/17 [Last Taken 05/06/17] Levothyroxine [Synthroid 88 mcg (*)] 03/29/17 [Last Taken 05/06/17] I have personally reviewed and updated: medical history - Social History Smoking Status: Never smoked Review of Systems Review of Systems: Physical Exam Physical Exam:
[2017-09-23] MEDS ORDERED: ceFAZolin 2 GM/SWFI 2 GM/20 ML SYR IVP ONE (11:36)
[2017-09-23] MEDS ORDERED: PREGABALIN 150 MG CAP PO ONE (11:36)
[2017-09-23] MEDS ORDERED: ACETAMINOPHEN 500 MG TAB PO ONE (11:36)
[2017-09-23] MEDS ORDERED: LR 1,000 ML IV ONE (11:38)
[2017-09-23] MEDS ORDERED: MIDAZOLAM 2 MG/2 ML VIAL IVP ONE (13:32)
[2017-09-23] MEDS ORDERED: oxyCODONE IR 5 MG TAB PO PRN ×2 (13:33→18:42)
[2017-09-23] MEDS ORDERED: ONDANSETRON 4 MG/2 ML VIAL IVP PRN ×2 (13:33→18:42)
[2017-09-23] MEDS ORDERED: NALOXONE HCL 0.4 MG/ML INJ IVP PRN ×2 (13:33→18:42)
[2017-09-23] MEDS ORDERED: LR 500 ML IV PRN (13:33)
[2017-09-23] MEDS ORDERED: DEXAMETHASONE 4 MG/ML VIAL IVP PRN ×2 (13:33→18:42)
[2017-09-23] MEDS ORDERED: HYDROCODONE/APAP 5/325 TAB PO PRN ×2 (13:33→18:42)
[2017-09-23] MEDS ORDERED: HYDROmorphONE/DILAUDID 1 MG/ML INJ IVP PRN (13:33)
[2017-09-23] MEDS ORDERED: ALBUTEROL 3 ML DEYVIAL IH PRN (13:33)
--- NOTE | 2017-09-23 13:34 | PDANEPAE ---
ANE History of Present Illness Right Hip ANE Past Medical History - Cardiovascular History Hx Hypertension: No Hx Arrhythmias: No Hx Chest Pain: No Hx Coronary Artery / Peripheral Vascular Disease: No Hx CHF / Valvular Disease: No Hx Palpitations: No - Pulmonary History Hx COPD: No Hx Asthma/Reactive Airway Disease: Yes Hx Recent Upper Respiratory Infection: No Hx Oxygen in Use at Home: No Hx Sleep Apnea: No Sleep Apnea Screening Result - Last Documented: Negative Pulmonary History Comment: exercise induced asthma - Neurologic History Hx Cerebrovascular Accident: No Hx Seizures: No Hx Dementia: No - Endocrine History Hx Diabetes: No - Renal History Hx Renal Disorders: No - Liver History Hx Hepatic Disorders: No - Neurological & Psychiatric Hx Hx Neurological and Psychiatric Disorders: Yes Neurological / Psychiatric History Comment: depression - Cancer History Hx Cancer: No - Congenital Disorder History Hx Congenital Disorders: No - GI History Hx Gastrointestinal Disorders: No - Other Health History Other Health History: none - Chronic Pain History Chronic Pain: No - Surgical History Prior Surgeries: labral reconstruction right hip, L MARCUS on 05/06/17. ANE Review of Systems Review of Systems: - Exercise capacity METS (RN): 4 METS ANE Patient History - Allergies Allergies/Adverse Reactions: No Known Allergies Allergy (Verified 09/06/17 11:44) - Home Medications Home Medications: Fluoxetine HCl [Prozac 40 mg] 03/29/17 [Last Taken 09/23/17 08:00] Levothyroxine [Synthroid 88 mcg (*)] 03/29/17 [Last Taken 05/06/17] - NPO status NPO Since - Liquids (Date): 09/23/17 NPO Since - Liquids (Time): 08:00 NPO Since - Solids (Date): 09/22/17 NPO Since - Solids (Time): 19:00 - Smoking Hx Smoking Status: Never smoked - Family Anes Hx Family Hx Anesthesia Complications: none ANE Labs/Vital Signs - Vital Signs Blood Pressure: 125/84 Heart Rate: 66 Respiratory Rate: 14 O2 Sat (%): 97 Height: 160.02 cm Weight: 54.431 kg ANE Physical Exam - Airway Neck exam: FROM Mallampati Score: Class 2 - Pulmonary Pulmonary: clear to auscultation - Cardiovascular Cardiovascular: regular rate and rhythym - ASA Status ASA Status: I ANE Anesthesia Plan Anesthesia Plan: general endotracheal anesthesia
[2017-09-23] MEDS ORDERED: HYDROmorphONE/DILAUDID 2 MG/ML INJ IVP PRN (13:39)
[2017-09-23] MEDS ORDERED: LIDOCAINE 1% 300 MG/30 ML SDV ONE (14:03)
[2017-09-23] MEDS ORDERED: PROPOFOL 200 MG/20 ML VIAL ONE (14:03)
[2017-09-23] MEDS ORDERED: fentaNYL 100 MCG/2 ML INJ ONE ×2 (14:03→17:51)
[2017-09-23] MEDS ORDERED: DEXAMETHASONE 4 MG/ML VIAL ONE ×2 (14:07)
[2017-09-23] MEDS ORDERED: ROCURONIUM 50 MG/5 ML VIAL ONE (14:12)
[2017-09-23] MEDS ORDERED: GLYCOPYRROLATE 0.2 MG/1 ML VIAL ONE (14:30)
[2017-09-23] MEDS ORDERED: ONDANSETRON 4 MG/2 ML VIAL ONE (14:30)
[2017-09-23] MEDS ORDERED: NEOSTIGMINE METHYLSULFATE 3 MG/3 ML SYR ONE (14:30)
[2017-09-23] MEDS ORDERED: BACITRACIN 50,000 UNITS/10 ML SYR IRR ONE (15:54)
[2017-09-23] MEDS ORDERED: POLYMYXIN B SULFATE 500,000 UNIT/10 ML SYR IRR ONE (15:54)
--- NOTE | 2017-09-23 17:28 | POSTANESTH ---
Post Anesthetic Evaluation Cardiovascular Status: Normal, Stable Respiratory Status: Normal, Stable Level of Consciousness/Mental Status: Can Participate in Eval, Alert and Oriented Pain Control: Adequate, Prn Tx Ordered Nausea/Vomiting Control: Adequate, Prn Tx Ordered Complications Possibly Related to Anesthesia: None Noted
[2017-09-23] MEDS: fentaNYL 100 MCG/2 ML INJ IVP PRN ×3 (17:53→18:20)
[2017-09-23 19:27] VITALS: BP 103/75
== END 2017-09-23 19:16 | disposition home or self-care (01) ==
LOC: FSGY 11:21
PROVIDERS: ATTEND Orthopaedic Surgery Sports Medicine
PROC: 0QH204Z Insertion of Internal Fixation Device into Right Pelvic Bone, Open Approach (ICD-10-PCS; principal; 2017-09-23 12:45)
PROC: 0QP204Z Removal of Internal Fixation Device from Right Pelvic Bone, Open Approach (ICD-10-PCS; principal; 2017-09-23 12:45)
DX: T84.84XA Pain due to internal orthopedic prosthetic devices, implants and grafts, initial encounter (principal); E03.9 Hypothyroidism, unspecified
CPT/HCPCS: C1713; J0690; J1100; J2250; J2270; J2405; J2704; J2710; J3010

== ENCOUNTER 2018-03-17 08:25 | Day surgery (SDC) | payer OTHER ==
--- NOTE | 2018-03-16 20:36 | PDGENHP ---
History and Physical - Chief Complaint RIGHT HIP PAIN - History of Present Illness Diagnosis: 1. Right~Hip Pain, acute on chronic 2. ~~S/P Labral recon 3 years ago 3. Left hip pain, less symptomatic~ HISTORY OF PRESENT ILLNESS: Jonathanis a 47 y.o.~~active female~who I have had the pleasure to consult on today. 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 ~Chelsi~enjoys [employer] outdoor activities. Chelsi's~right~hip pain started almost 10~years ago, with~no~recalled trauma or injury, and with no~previous complaints. Jonathandoes not have~a known history of hip dysplasia. She saw Dr. Matta 3 years ago and was diagnosed with GLENN, he did a Right hip scope with labral reconstruction. She had significant improvement after surgery and got back to running and snowboarding, although she was never pain free.~About~1 year after her surgery her pain started returning and has gotten slowly progressively worse for the past 2 years. Presentation today is of~anterior~and lateral~right~hip pain. ~The hip~does~ wake her~at night and does~click and catch on her. Sitting~can be uncomfortable~ for her.~Jonathandoes not~report suffering from lower back pain episodes. Jonathanhas~participated in physical therapy and has~tried other conservative measures including dry needling, chiropractic treatments and massage therapy.~ She has had 3 SI injections on the Right side, most recently 2 months ago, they provide significant relief for roughly 2 weeks. She has had 1 hip injection 4 months ago which provided complete relief for several hours, but no long lasting help.~She~has not~received sufficient symptomatic improvement. Chelsi~has~utilized medication for pain management, including NSAID~and ultram.~Chelsi Pagehas used medication for 3-4~years. Jonathandenies issues with the left~hip. ~ Jonathanunderstands that she~has a hip and pelvis problem which should be researched and wishes to get a better understanding of her~hip status, followed by an establishment of a treatment strategy, hoping she~would be able to get back to her~well being active life. History: Past medical history:~~ Hypothyroidism Relevant familial history:~None which is relevant~ Past surgical history:~ No. Surgery Anesthesia Year Outcome 1 Appendectomy General 1992 Good 2 Left foot surgery General 2007 Good 3 Right hip scope General 2014 Not satisfactory Jonathandenies problematic issues with general anesthesia in the past. I have reviewed, verified and agree with the past medical, surgical, family and social history. Current Medications:~has a current medication list which includes the following prescription(s): levothyroxine. ALLERGIES:~has No Known Allergies. Objective: Physical Examination: Jonathanis 5~feet 3~inches tall and weighs 125~Lbs. Jonathanis AAO x3; she~is well- nourished, in NAD. Skin is warm and dry. ~Breathing is non-labored. ~CV with RRR by pulse. Abdomen is soft, NTND. Currently,~she~walks with a normal~gait. Trendelenburg sign is~positive~and proprioception is~reduced,~right~side. She~presents with mild~signs of joint laxity. Beightons Score:~2 Lower spine examination is~negative~for sciatic or femoral nerve irritation with negative~SLR &~femoral stretch tests. Range of motion of the spine is normal~for flexion, extension, and rotations, with no~associated pain. Strength, Sensation and pulses are~normal -~bilaterally Ankles and knees exams are~normal~and no~mal-alignment is evident. She~has no leg length discrepancy. Thigh circumference is~symmetric~with no evidence for muscle atrophy~on both~ sides. Hip ROM (degrees): FL ER At 90~hip FL IR At 90~hip FL AB AD EX IR Neutral hip ER Neutral hip R 110 45 15 45 10 5 45 30 L 115 50 15 45 5 5 50 25 Specific hip and pelvis tests: Quadrant STACI Roll Add. Longus R +++ +++ Negative Negative L ++ ++ Negative Negative Glut. Med ITB Pos. Imp R ++ 5/5 strength Negative 5/5 strength Negative L Negative 5/5 strength Negative 5/5 strength Negative Squeeze test measured~normal Bony Symphysis pubis is~pain free~to touch while concentric activity of the rectus abdominis, does not~produce pain at its insertion. Ilio Psos specific tests are~positive for pain during cycling for~the right hip~ and no snap HF has~good strength with minimal pain on~the right hip. No~capsule tenderness Greater trochanteric burse is~pain free~on both hips. Piriformis tests: FAIR is~negative,~with no~local signs of neuritis related to sciatic nerve. SIJs examination is~normal~with normal~STACI in relation and local tenderness. Hamstrings tests are~negative~functional contraction and negative~tendinopathy both hips. On a daily basis, the following percentages reflectRene's overall total pain: Deep hip:~75% Glut:~25% Imaging: Radiology studies which I have personally reviewed, analyzed and measured are below: XR: AP of the hip and pelvis: Performed in a~good~technique Coccyx to pubic symphysis distance~1.5~cm. 0~degrees caudal/cephal [place] Lines are~preserved. Minimal~Pathological signs are seen in the Symphysis Pubis. Minimal~Pathological signs are seen at the Ischial tuberosity. ~ Specific measurements show: NSA~ LCE Sourcil~Angle Sharp's angle Lat. Cam Lat. Pincer C.Over~sign Head~Coverage % ATDmm R N 30 5 41 - - - 72 N L N 35 1 36 - - - N N Pos. wall sign ISS NAD ~~Dysplasia Comments R Negative Negative 12~mm Negative L Negative Negative 10~mm Negative Sclerosis Sup. Lat. OA Cysts Joint Space-WBZ Joint Space-Medial R + + +~(femoral) 4.1~mm 4.6~mm L Negative Negative Negative 4.7~mm 4.0~mm X Table lateral: Anterior cam lesion is~seen~on the left hip. Alpha Angle: ~ Right~38~dergrees Left~51~degrees Impression and plan:Camilo Castillois a 47 y.o.~active female~suffering from symptomatic right~hip pain likely due to either scar tissue~and adhesions and possibly~borderline instability~ causing significant disability to~her~and altering her~sport and life activities. Physical examination, imaging, and~her~story correspond with the diagnosis mentioned above. Post surgical scar tissue~and adhesions is a one of the commonest reasons for revision hip scope and is usually addressed well via revision hip scope and scar tissue removal. I explained that hip~Instability (Dysplasia)~is a condition wherein the hip joint has excessive play and instability due to a variety of factors, including the depth and adequacy of the socket, the orientation of the femur bone, and ligament laxity around the hip joint. Dysplasia ranges in severity from borderline to medhat, with treatment options being specific to the specific nature of the problem. Left untreated, the instability in the hip joint can cause progressive tearing of the labrum and deterioration of the surface cartilage, ultimately resulting in progressive osteoarthritis of the hip. I reviewed conservative treatment options for dysplasia including activity modification to avoid positions of instability, physical therapy, non-steroidal anti-inflammatory medications, and various injections (corticosteroid and PRP) aimed at reducing inflammation in the hip joint or/and preventing dynamic instability and impingement. Although these measures may help to buy time, they are not a definitive solution to the problem given the underlying abnormality in the shape of the hip joint. Patients who have failed conservative management and continue to experience symptoms are candidates for definitive surgical treatment, which may consist of hip arthroscopy alone or in combination with more invasive bony realignment procedures of the hip socket and/or femur called periacetabular osteotomy (MARCUS) or derotational femoral osteotomy (DFO). Hip arthroscopy typically includes treating the labrum with either repair or reconstruction of the torn labrum; as well as addressing the underlying abnormalities by restoring the normal shape of the hip joint. ~If the cartilage is damaged a Microfracture surgical procedure may also be necessary to help stimulate the growth of fibrocartilage. If a patient requires a labral reconstruction or a Microfracture, the initial rehabilitation from the surgery may take longer, but the shelter results are typically favorable. I have explained that because of her age and gender, the results of hip arthroscopy are less reproducible/predictable than with younger patients or male patients of the same age. I reviewed the technical aspects of periacetabular osteotomy (MARCUS) including risks, benefits, and expected course of recovery.~Chelsi~understands that MARCUS is an inpatient procedure carried out through two medium sized incisions on the front and back of the hip joint. The hip socket is cut, realigned, and stabilized with 2 3 internal screws. Risks include infection, bleeding, injury to nearby nerves or vessels, stiffness, persistent pain, instability, failure of bony healing, implant related complications, and venous thromboembolic disease. Rarely, revision surgery may be required to address these problems. Risks, potential complications, side effects and recovery from surgical procedure were discussed in length. We explained how this surgery is an open procedure, and though patients tend to do well in the long-term, it involves significant pain in the first 2-4 weeks post-op and a rather lengthy rehab.~Overall recovery takes approximately 6 12~months depending on the extent of damage and degree of repair. Jonathanunderstands that she~will undergo hip arthroscopy 1 week prior to the MARCUS to address damage inside the hip joint. Chelsi~understands that hip arthroscopy and MARCUS are two separate procedures that are best performed one week apart, with the arthroscopy commencing first to "tighten up" any pathology evident in the hip joint (labral repair, etc.) and the MARCUS open procedure occurring 7-10 days later to realign the acetabulum. Chelsi~will review the info presented. In order to obtain more detailed information regarding the alignment, orientation, and shape of the bony hip and pelvis I will order a CT scan to be performed. The results of the CT scan, including femoral torsion and acetabular version measured values and 3D images, will aid me in deciding on the best treatment strategy and surgical pre-planning. In order to better evaluate the soft tissues and cartilage of the hip joint, I will order an MRI scan. Jonathanis going to contact us after completing her~imaging studies. At this point we do NOT conclude that she suffers from hip instability. We need both MR and CT to be able to establish a formal diagnosis and suggest a treatment strategy. Jonathanis happy with this plan. I have also supplied~her~with handouts, outlining the expected surgical treatment and rehab involved. I wish~Jonathanall the best, ~~ Art Messina MD History Information - Allergies/Home Medication List Allergies/Adverse Reactions: No Known Allergies Allergy (Verified 09/06/17 11:44) Home Medications: Fluoxetine HCl [Prozac 40 mg] DAILY 03/29/17 [Last Taken 09/23/17 08:00] Levothyroxine [Synthroid 88 mcg (*)] DAILY 03/29/17 [Last Taken 05/06/17] Ibuprofen PRN 03/13/18 [Last Taken Unknown] I have personally reviewed and updated: medical history - Social History Smoking Status: Never smoked Review of Systems Review of Systems: Physical Exam Physical Exam:
[2018-03-17] MEDS ORDERED: ceFAZolin 2 GM/DEXTROSE 100 ML IV ONE (08:34)
[2018-03-17] MEDS ORDERED: PREGABALIN 150 MG CAP PO ONE (08:34)
[2018-03-17] MEDS ORDERED: ACETAMINOPHEN 500 MG TAB PO ONE (08:34)
[2018-03-17] MEDS ORDERED: LR 1,000 ML IV ONE (08:36)
[2018-03-17] MEDS ORDERED: LIDOCAINE 1% 2 ML INJ ID PRN (08:36)
[2018-03-17] MEDS ORDERED: LIDOCAINE 1% 300 MG/30 ML SDV ONE (08:42)
--- NOTE | 2018-03-17 10:12 | PDANEPAE ---
ANE Past Medical History - Cardiovascular History Hx Hypertension: No Hx Arrhythmias: No Hx Chest Pain: No Hx Coronary Artery / Peripheral Vascular Disease: No Hx CHF / Valvular Disease: No Hx Palpitations: No - Pulmonary History Hx COPD: No Hx Asthma/Reactive Airway Disease: Yes Hx Recent Upper Respiratory Infection: No Hx Oxygen in Use at Home: No Hx Sleep Apnea: No Sleep Apnea Screening Result - Last Documented: Negative Pulmonary History Comment: exercise induced asthma - Neurologic History Hx Cerebrovascular Accident: No Hx Seizures: No Hx Dementia: No - Endocrine History Hx Diabetes: No Hypothyroid: No Hyperthyroid: No Obesity: no - Renal History Hx Renal Disorders: No - Liver History Hx Hepatic Disorders: No - Neurological & Psychiatric Hx Hx Neurological and Psychiatric Disorders: Yes Neurological / Psychiatric History Comment: depression - Cancer History Hx Cancer: No - Congenital Disorder History Hx Congenital Disorders: No - GI History Hx Gastrointestinal Disorders: No - Other Health History Other Health History: none - Chronic Pain History Chronic Pain: Yes (RT HIP) - Surgical History Prior Surgeries: RT HIP REMVL HARDWARE 09/23/17. RT HIP labral reconstruction. L MARCUS on 05/06/17. ANE Review of Systems Review of Systems: - Exercise capacity METS (RN): 4 METS ANE Patient History - Allergies Allergies/Adverse Reactions: No Known Allergies Allergy (Verified 09/06/17 11:44) - Home Medications Home Medications: Fluoxetine HCl [Prozac 40 mg] DAILY 03/29/17 [Last Taken 03/17/18 07:00] Levothyroxine [Synthroid 88 mcg (*)] DAILY 03/29/17 [Last Taken 03/17/18 07:00] Ibuprofen PRN 03/13/18 [Last Taken 2 Weeks Ago ~03/03/18] - NPO status NPO Since - Liquids (Date): 03/17/18 NPO Since - Liquids (Time): 07:00 NPO Since - Solids (Date): 03/16/18 NPO Since - Solids (Time): 21:00 - Smoking Hx Smoking Status: Never smoked - Family Anes Hx Family Hx Anesthesia Complications: none ANE Labs/Vital Signs - Vital Signs Blood Pressure: 122/82 Heart Rate: 55 Respiratory Rate: 18 O2 Sat (%): 98 Height: 160.02 cm Weight: 58.06 kg ANE Physical Exam - Airway Neck exam: FROM Mallampati Score: Class 1 Mouth exam: normal dental/mouth exam - Pulmonary Pulmonary: no respiratory distress - Cardiovascular Cardiovascular: regular rate and rhythym - ASA Status ASA Status: II ANE Anesthesia Plan Anesthesia Plan: GA w LMA
[2018-03-17] MEDS ORDERED: fentaNYL 100 MCG/2 ML INJ ONE (10:23)
[2018-03-17] MEDS ORDERED: PROPOFOL 200 MG/20 ML VIAL ONE ×2 (10:23→10:46)
[2018-03-17] MEDS ORDERED: LIDOCAINE 2% 2 ML INJ ONE (10:23)
--- NOTE | 2018-03-17 10:26 | PDHPUP ---
History & Physical Update H&P update statement: This history and physical update is based on an assessment of the patient which was completed after admission or registration (within 24 hours), but prior to the surgery/procedure. H&P update: no change in patient's condition since H&P completed (Plan for R hip removal of hardware.)
--- NOTE | 2018-03-17 11:06 | POSTOPPROG ---
Post Op Note Date of Operation: 03/17/18 Surgeon: Ryan Lambert Supervisor [employer]: Shanon Maki Anesthesia: LMA Pre-op Diagnosis: R hip retained hardware Post-op Diagnosis: Same Procedure: Removal of R hip hardware Inf/Abcess present in the surg proc area at time of surgery?: No EBL: Minimal
[2018-03-17] MEDS ORDERED: ONDANSETRON 4 MG/2 ML VIAL IVP PRN (11:15)
[2018-03-17] MEDS ORDERED: NALOXONE HCL 0.4 MG/ML INJ IVP PRN (11:15)
[2018-03-17] MEDS ORDERED: fentaNYL 100 MCG/2 ML INJ IVP PRN (11:15)
[2018-03-17] MEDS ORDERED: HYDROCODONE/APAP 5/325 TAB PO PRN (11:15)
[2018-03-17] MEDS ORDERED: LR 500 ML IV PRN (11:15)
[2018-03-17 12:47] VITALS: BP 140/90
== END 2018-03-17 12:35 | disposition home or self-care (01) ==
LOC: FSGY 08:25
PROVIDERS: ATTEND Orthopaedic Surgery Sports Medicine
PROC: 0QP204Z Removal of Internal Fixation Device from Right Pelvic Bone, Open Approach (ICD-10-PCS; principal; 2018-03-17 09:45)
DX: T84.84XA Pain due to internal orthopedic prosthetic devices, implants and grafts, initial encounter (principal); E03.9 Hypothyroidism, unspecified
CPT/HCPCS: J0690; J2704; J3010